=== PATIENT | male | born 1940 | race Caucasian/White ===

== ENCOUNTER 2018-11-04 18:23 | Inpatient (IN) | payer OTHER ==
--- OUTSIDE RECORDS SUMMARY | 2018-11-04 18:25 | XMS REPORT | Continuity of Care Document ---
:1940 Author Organization [employer] Care Team Providers Name Role Phone [employer] 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 18 Medical of left eyelid, Center including canthus EYELID Active 05/15/19 [facility] RECONTRUCTION 18 Medical Center Unspecified 08/22/2017 [facility] ectropion of Medical right lower Center eyelid Unspecified 08/22/2017 [facility] ectropion of left Medical lower eyelid Center Eyelid retraction 08/22/2017 [facility] left upper eyelid Medical Center Other specified 08/22/2017 [facility] disorders of Medical eyelid Center Unspecified 08/22/2017 [facility] disorder of Medical cornea Center Scar conditions 08/22/2017 [facility] and fibrosis of Medical Center [place] skin Center Conjunctival 08/22/2017 [facility] hemorrhage, Medical bilateral Center Gastro-esophageal 08/22/2017 [facility] reflux disease Medical without Center esophagitis Parkinson's 08/22/2017 [facility] disease Medical Center Alzheimer's 08/22/2017 [facility] disease, Medical unspecified Center Dementia in other 08/22/2017 [facility] diseases Medical Center [place] classified Center elsewhere without behavioral disturbance Schizophrenia, [facility] Personal history 08/22/2017 [facility] nicotine Medical dependence Center Anxiety Resolved Problem 08/22/[address] [facility] Weakness Resolved Problem 08/22/2017 [facility] generalized Medical Center [place] [facility] Cardiac Resolved Problem 08/22/2017 [facility] [address] [facility] COPD (Confirmed) Resolved Problem 08/22/[address] 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 Dysphagia Resolved Problem 08/22/[address] [facility] Entropion of Resolved Problem 08/22/2017 [facility] right eyelid Medical Center Hyperlipemia Resolved Problem 08/22/[address] [facility] Hypertension Resolved Problem 08/22/[address] [facility] Parkinson's Resolved Problem 08/22/2017 [facility] disease Medical Center [place] [facility] Rhinitis Resolved Problem 08/22/[address] [facility] Schizophrenia Resolved Problem 08/22/[address] [facility] Seizure Resolved Problem 08/22/[address] [facility] Medications Medication Details Route Status Patient Ordering Order Source Instructions Provider Date ondansetron Route: IV, Inactive [facility] (ANES) Drug form: 018 Medical INJ, ONCE, Center Stop date: 05/16/17 13:25:00 PYRIDINE OPERATOR acetaminophen Route: IV, Inactive [facility] (ANES) 10 mg Drug form: 018 Medical INJ, Start Center date: 05/16/17 10:38:00 PYRIDINE OPERATOR, Stop date: 05/16/17 11:38:00 PYRIDINE OPERATOR propofol (ANES) Route: IV, Inactive [facility] Drug form: 018 Medical INJ, ONCE, Center Stop date: 05/16/17 10:24:00 PYRIDINE OPERATOR lidocaine (ANES) Route: IV, Inactive [facility] Drug form: 018 Medical INJ, ONCE, Center Stop date: 05/16/17 10:24:00 PYRIDINE OPERATOR rocuronium Route: IV, Inactive [facility] (ANES) Drug form: 018 Medical INJ, ONCE, Center Stop date: 05/16/17 10:24:00 PYRIDINE OPERATOR fentaNYL (ANES) Route: IV, Inactive [facility] Drug form: 018 Medical INJ, ONCE, Center Stop date: 05/16/17 10:24:00 PYRIDINE OPERATOR ceFAZolin (ANES) Route: IV, Inactive [facility] Drug form: 018 Medical INJ, ONCE, Center Stop date: 05/16/17 10:14:00 PYRIDINE OPERATOR Lactated Ringers Route: IV, Inactive [facility] Injection IV Total 018 Medical (ANES) 1000 mL Volume: Center 1,000, Start date: 05/16/17 9:23:00 PYRIDINE OPERATOR, Stop date: 05/16/17 10:23:00 PYRIDINE OPERATOR Risperidone 2 MG 2 mg=1 tab, Active [facility] Oral Tablet PO, BID, # 018 Medical [Risperdal] 60 tab, 0 Center Refill(s) 24 HR =1 patch, Active [facility] rivastigmine TOP, Daily, 018 Medical 0.554 MG/HR apply to Center Transdermal area that Patch [Exelon] is clean/dry/h airless & free of redness/irr itation/bur ns/cuts, # 30 patch, 0 Refill(s) [place] Essentials 1 cap, PO, Active [facility] BID, 0 018 Medical Refill(s) [place] propranolol 20 20 mg=1 Active [place] mg oral tablet tab, PO, 018 Medical BID, # 60 Center tab, 1 Refill(s) omeprazole 10 mg 10 mg=1 Active [facility] oral delayed cap, PO, 018 Medical release capsule Daily, # 90 Center cap, 0 Refill(s) Polymyxin B 1 drp, Each Active [facility] 23035 UNT/ML / Affected 018 Medical Trimethoprim 1 Eye, Q3H, # Center MG/ML Ophthalmic 10 mL, 0 Solution Refill(s) [Polytrim] Ciprofloxacin / 1 appl, Active [facility] fluocinolone Q12H, 0 018 Medical Refill(s) Center Phenytoin sodium 100 mg=1 Active [facility] 100 MG Extended cap, PO, 018 Medical Release Capsule TID, # 90 Center [Dilantin] cap, 1 Refill(s) Divalproex 125 mg=1 Active [facility] Sodium 125 MG tab, PO, 018 Medical Enteric Coated TID, # 90 Center Tablet tab, 0 [Depakote] Refill(s) atorvastatin 20 20 mg=1 Active [facility] mg oral tablet tab, PO, 018 Medical Bedtime, # Center 90 tab, 1 Refill(s) Lorazepam 0.5 MG 0.5 mg=1 Active [facility] Oral Tablet tab, PO, 018 Medical [Ativan] TID, PRN [place] Anxiety, # 20 tab, 0 Refill(s) amantadine 100 100 mg=1 Active [facility] mg oral capsule cap, PO, 018 Medical Q12H, # 20 Center cap, 0 Refill(s) Allergies, Adverse Reactions, Alerts No Known Medication Allergies Immunizations No Data Provided for This Section Results Order Name Results Value Reference Date Interpretation Comments Source Range CHEM PANEL eGFR 95 [facility] 2017 Comment: The Medical eGFR is Center calculated using the CKD-EPI formula. In most young, healthy individuals the eGFR will be >90 mL/min/1.73m2 . The eGFR declines with age. An eGFR of 60-89 may be normal in some populations, particularly the elderly, for whom the CKD-EPI formula has not been extensively validated. Use of the eGFR is not recommended in the following populations:< br/>
Shruthi viduals with unstable creatinine concentration s, including patients and those with serious co-morbid conditions.<b r/>
Patie nts with extremes in muscle mass or diet.

The data above are obtained from the National Kidney Disease Education Program (NKDEP) which additionally recommends that when the eGFR is used in patients with extremes of body mass index for purposes of drug dosing, the eGFR should be multiplied by the estimated BMI. CHEM PANEL Sodium Lvl 139 135 - 145 05/[address] CHEM PANEL Creatinine 0.64 0.50 - 1.40 05/[address] CHEM PANEL BUN 10 7 - 22 05/[address] CHEM PANEL Calcium Lvl 8.9 8.5 - 10.5 05/[address] CHEM PANEL CO2 28 24 - [address] CHEM PANEL Chloride Lvl 104 95 - 109 05/[address] CHEM PANEL Potassium Lvl 4.1 3.5 - 5.[address] CHEM PANEL Glucose Lvl 109 70 - [address] CHEM PANEL AGAP 11.1 10.0 - 20.[address] HEMATOLOGY Monocytes # 0.7 0.0 - 0.8 05/[address] HEMATOLOGY Eosinophils # 0.1 0.0 - 0.[address] HEMATOLOGY Segs-Bands # 5.4 1.5 - 8.[address] HEMATOLOGY Basophils 0.4 0.0 - 1.[address] HEMATOLOGY Lymphocytes # 2.0 1.0 - 5.[address] HEMATOLOGY Segs 65.6 45.0 - 75.[address] HEMATOLOGY Eosinophils 1.5 0.0 - 4.0 02/[address] HEMATOLOGY Monocytes 8.3 2.0 - 12.[address] HEMATOLOGY Lymphocytes 24.2 20.0 - 40.[address] HEMATOLOGY MPV 8.1 7.4 - 10.[address] HEMATOLOGY RDW 13.4 11.5 - 14.[address] HEMATOLOGY Platelet 192 133 - [address] HEMATOLOGY Hgb 14.7 14.0 - 18.[address] HEMATOLOGY Hct 42.2 42.0 - 54.[address] HEMATOLOGY MCH 31.4 27.0 - 31.[address] HEMATOLOGY MCHC 34.7 32.0 - 36.[address] HEMATOLOGY MCV 90.3 80.0 - 94.[address] HEMATOLOGY WBC 8.3 3.7 - 10.[address] HEMATOLOGY RBC 4.68 4.70 - 6.[address] Pathology Reports No Data Provided for This Section Diagnostic Reports No Data Provided for This Section Consultation Notes No Data Provided for This Section Discharge Summaries No Data Provided for This Section History and Physicals No Data Provided for This Section Vital Signs Vital Sign Value Date Comments Source Systolic (mm Hg) 123 05/16/[address] [facility] Diastolic (mm Hg) 57 05/16/[address] [facility] Systolic (mm Hg) 124 05/16/[address] [facility] Diastolic (mm Hg) 58 05/16/[address] [facility] Systolic (mm Hg) 119 05/16/[address] [facility] Diastolic (mm Hg) 60 05/16/[address] [facility] Respitory Rate 17 05/16/[address] [facility] Respitory Rate 15 05/16/[address] [facility] Respitory Rate 14 05/16/[address] [facility] Heart Rate 68 05/16/[address] [facility] BMI Calculated 22.25 05/16/[address] [facility] Weight 66.364 05/16/[address] [facility] Height 172.72 cm 05/16/[address] 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 Smoking Status Former smoker; Type: Cigarettes; Previous treatment: None; Ready to change: No ; Concerns about tobacco use in household: No; Exposure to Tobacco Smoke None; Cigarette Smoking Last 365 Days Yes; Reg Smoking Cessation Counseling Yes entered on: 05/16/17 Family History No Data Provided for This Section Advance Directives No Data Provided for This Section Functional Status No Data Provided for This Section
[2018-11-04] MEDS ORDERED: MORPHINE 4 MG/ML SYR ONE (18:47)
[2018-11-04] MEDS ORDERED: ONDANSETRON 4 MG/2 ML VIAL ONE (18:48)
[2018-11-04] MEDS ORDERED: NA CHLORIDE 0.9% 1,000 ML ONE (18:48)
[2018-11-04 18:57] LABS: Protime INR 0.99
[2018-11-04 18:59] LABS: Absolute Lymphocytes (CBC) 2.4 K/uL (0.7-4.9); Basophils % 0.3 % (0-1.3); Hematocrit 42.4 % (39.6-49.0); Lymphocytes % 33.9 % (15.3-44.8); MPV 8.4 fL (7.6-11.3); RBC Red Blood Cell Count 4.51 M/uL (4.33-5.43)
--- NOTE | 2018-11-04 19:19 | RAD REPORT ---
EXAM DESCRIPTION: RAD - Pelvis - 11/04/2018 7:12 pm CLINICAL HISTORY: PAIN Fall, pain COMPARISON: Hip Bilateral With Pelvis dated 10/23/2015; Hip Left 2 View dated 11/04/2018Hip Bilateral With Pelvis dated 10/23/2015; Hip Left 2 View dated 11/04/2018; Femur Left dated 11/04/2018 FINDINGS: AP pelvis, left hip and left femur- multiple projections are submitted Intratrochanteric fracture the proximal left femur is seen without significant displacement. No addit ional fracture is identified. No dislocation evident.
--- NOTE | 2018-11-04 19:21 | RAD REPORT ---
EXAM DESCRIPTION: RAD - Chest Single View - 11/04/2018 7:15 pm CLINICAL HISTORY: COUGH Chest pain. COMPARISON: Chest Single View dated 10/23/2015; Chest Single View dated 10/21/2015; Chest Single View dated 10/20/2015; Chest Single View dated 10/19/2015 FINDINGS: Portable technique limits examination quality. Emphysematous changes are present throughout the lungs. The heart is normal in size. Mildly tortuous thoracic aorta. IMPRESSION: COPD.
[2018-11-04 19:26] LABS: ALT/SGPT 20 U/L (12-78); AST/SGOT 30 U/L (15-37); Albumin 3.5 g/dL (3.4-5.0); Alkaline Phosphatase 87 U/L (45-117); BUN Blood Urea Nitrogen 14 mg/dL (7-18); Bicarbonate 30 mmol/L (21-32); Bilirubin Direct < 0.1 mg/dL (0-0.2); Bilirubin Total 0.2 mg/dL (0.2-1.0); Glucose Level 96 mg/dL (74-106); Magnesium 2.1 mg/dL (1.8-2.4); NT PRO-BNP 173 pg/mL (<450); Potassium 3.8 mmol/L (3.5-5.1); Protein, Total 6.7 g/dL (6.4-8.2); Sodium Level 142 mmol/L (136-145); Troponin (Emerg Dept Use Only) < 0.02 ng/mL (0.0-0.045)
[2018-11-04 19:35] LABS: Phenytoin (Dilantin) Level 18.8 ug/mL (10.0-20.0)
--- NOTE | 2018-11-04 20:30 | ER ---
Nurse's Notes [facility] Name: Jsaper Smallwood Jr Age: 78 yrs Sex: Male : 1940 Arrival Date: 11/04/2018 Time: 18:22 Bed 6 Private MD: Diagnosis: Fall due to bumping against object;Nondisplaced intertrochanteric fracture of left femur Presentation: 11/04 18:23 Presenting complaint: EMS states: pt was walking down the [place] at [facility] when he tripped and fell on duct tape that was taped to the floor, pt fell to the left side and reports having pain, denies LOC, EMS believe the left leg to be externally rotated at this time. Care prior to arrival: Placed on backboard. IV initiated. 20 GA, in the left antecubital area. Mechanism of Injury: Fall from standing position. Trauma event details: Injury occurred in the [facility], Injury occurred: [facility] Injury occurred: November 04, 2018. 18:23 Acuity: JUVENTINO 3 18:23 Method Of Arrival: EMS: [facility] 18:25 Transition of care: patient was received from another setting of care (long-term care facility), [facility]. Onset of symptoms was November 04, 2018. Risk Assessment: Do you want to hurt yourself or someone else? Patient reports no desire to harm self or others. Initial Sepsis Screen: Does the patient meet any 2 criteria? No. Patient's initial sepsis screen is negative. Does the patient have a suspected source of infection? No. Patient's initial sepsis screen is negative. Note pt currently on cipro for cellulitis to the left eye. Trauma Activation: Alert Physician: ED Physician; Name: ; Notified At: ; Arrived At: Physician: General Surgeon; Name: ; Notified At: ; Arrived At: Physician: Radiology; Name: ; Notified At: ; Arrived At: Physician: Respiratory; Name: ; Notified At: ; Arrived At: Physician: Lab; Name: ; Notified At: ; Arrived At: Historical: - Allergies: 18:28 No Known Allergies; sg - PMHx: 18:28 Anxiety; Hyperlipidemia; Parkinsons; Schizophrenia; sg - PSHx: 18:28 Unable to obtain; sg - Code Status:: DNAR. - Immunization history:: Adult Immunizations up to date. - Social history:: Smoking status: Patient/guardian denies using tobacco. - Immunization history: Last tetanus immunization: - up to date. - Ebola Screening: : Patient negative for fever greater than or equal to 101.5 degrees Fahrenheit, and additional compatible Ebola Virus Disease symptoms Patient denies exposure to infectious person Patient denies travel to an Ebola-affected area in the 21 days before illness onset No symptoms or risks identified at this time. - Family history:: not pertinent. Screenin:23 Nutritional screening: On bland/soft diet, Difficulty chewing/swallowing? Yes. sg Tuberculosis screening: No symptoms or risk factors identified. Fall Risk Fall in past 12 months (25 points). Gait- Impaired (20 pts.). Total Fan Fall Scale indicates High Risk Score (45 or more points). Fall prevention measures have been instituted. Side Rails Up X 2 Placed Close to Nursing Station Frequent Obs/Assessments Occuring. 18:28 Abuse screen: Denies threats or abuse. Denies injuries from another. sg Primary Survey: 18:29 NO uncontrolled hemorrhage observed. A: The patient is alert. Airway: patent, No sg supplemental oxygen in use on arrival. Oral cavity: clear, Trachea midline. Breathing/Chest: Respiratory pattern: regular, Respiratory effort: spontaneous, unlabored, Breath sounds: clear, Chest inspection: symmetrical rise and fall of the chest. Circulation: Heart tones present. Disability Alert. Exposure/Environment: All clothing and personal items were removed. Forensic evidence collection is not deemed to be indicated at this time. Items placed in patient belonging bag. There is no evidence of uncontrolled external bleeding. Obvious injury(ies) are noted at this time: left hip pain, externally rotated A warming method has been applied: A warm blanket has been provided to the patient. 19:50 Reassessment Airway Airway Patent Breathing/Chest Respiratory pattern Regular rr5 Respiratory effort Spontaneous Unlabored Breath sounds Clear Chest inspection Symmetrical Circulation Heart rhythm Sinus rhythm Heart tones Present Pulses Palpable Color [place] Temperature Warm Disability Alert. 19:51 Reassessment Airway Airway Breathing/Chest Respiratory pattern Regular. ao Secondary Survey: 18:30 HEENT: Head No injury/deformity Face Other redness and swelling to the left eye, EMS sg report pt on Cipro for cellulitis to the left eye Eyes: No injury or deformity noted. Ears: clear Nose: clear to bilateral nares. Throat: No injury or deformity noted. Gastrointestinal: Abdomen is soft, Bowel sounds present in all quadrants. Palpation No deficit noted. : No signs and/or symptoms were reported regarding the genitourinary system. Musculoskeletal: Range of motion: limited in left hip pt reports too painful to move left hip Swelling absent Reports pain in left iliac crest and left hip. Assessment: 18:23 General: Appears in no apparent distress. uncomfortable, slender, unkempt, sg malnourished, Behavior is calm, cooperative, appropriate for age. Pain: Complains of pain in left iliac crest and left hip. Neuro: Level of Consciousness is awake, obeys commands, Speech is slurred, with a studder. Cardiovascular: Patient's skin is warm and dry. Pulses are palpable in left femoral artery, left posterior tibial artery and left dorsalis pedis artery Edema is absent. Chest pain is denied. Respiratory: Airway is patent Respiratory effort is even, unlabored, Respiratory pattern is regular, symmetrical. GI: Abdomen is round non-distended, Bowel sounds present X 4 quads. : No signs and/or symptoms were reported regarding the genitourinary system. EENT: No signs and/or symptoms were reported regarding the EENT system. Derm: Skin is pale, Skin temperature is warm. Musculoskeletal: Reports pain in left iliac crest and left hip. 18:58 Reassessment: observation pt transported to xray, pt remains in xray at this time. sg 19:20 General: Appears in no apparent distress. uncomfortable, slender, unkempt, Behavior is ao calm, cooperative, appropriate for age. Pain: Complains of pain in left hip. Neuro: Level of Consciousness is awake, obeys commands, Oriented to person, place, Speech is slurred. Cardiovascular: Capillary refill is > 3 seconds Patient's skin is warm and dry. Pulses are palpable in right radial artery and left radial artery. Respiratory: Airway is patent Respiratory effort is even, unlabored, Respiratory pattern is regular, symmetrical. GI: Abdomen is round non-distended. : No signs and/or symptoms were reported regarding the genitourinary system. EENT: No signs and/or symptoms were reported regarding the EENT system. Derm: Skin is pink, warm \T\ dry. normal, Skin temperature is warm. Musculoskeletal: Reports pain in left hip. 19:38 Reassessment: Got a call from Sharita at [facility] who wanted to check on ao patient and was told once doctor makes a dispo decision will call back. 20:30 Reassessment: Patient appears in no apparent distress at this time. Patient is alert, rr5 oriented x 3, equal unlabored respirations, skin warm/dry/pink. awaiting for CT result. 21:20 Reassessment: Patient appears in no apparent distress at this time. Patient and/or rr5 family updated on plan of care and expected duration. Pain level reassessed. Patient is alert, oriented x 3, equal unlabored respirations, skin warm/dry/pink. 22:20 Reassessment: Patient appears in no apparent distress at this time. Patient is alert, rr5 oriented x 3, equal unlabored respirations, skin warm/dry/pink. transfer to room 230. vitally stable. no complaints made. Vital Signs: 18:26 BP 153 / 53; Pulse 75; Resp 16; Temp 97.7; Pulse Ox 98% on R/A; Weight 79.38 kg; Pain sg 8/10; 19:55 BP 150 / 80; Pulse 61; Resp 13; Pulse Ox 99% on R/A; rr5 20:30 BP 148 / 85; Pulse 58; Resp 17; Pulse Ox 99% ; rr5 21:10 BP 141 / 75; Pulse 69; Resp 17; Pulse Ox 98% on R/A; rr5 22:20 BP 132 / 68; Pulse 64; Resp 16; Temp 98; Pulse Ox 100% ; rr5 [place] Coma Score: 19:00 Eye Response: spontaneous(4). Verbal Response: oriented(5). Motor Response: obeys ao commands(6). Total: 15. 19:55 Eye Response: spontaneous(4). Verbal Response: oriented(5). Motor Response: obeys rr5 commands(6). Total: 15. Trauma Score (Adult): 19:00 Eye Response: spontaneous(1); Verbal Response: oriented(1); Motor Response: obeys ao commands(2); Systolic BP: > 89 mm Hg(4); Respiratory Rate: 10 to 29 per min(4); Memo Score: 15; Trauma Score: 12 ED Course: 18:22 Patient arrived in ED. sg 18:23 Patient has correct armband on for positive identification. Bed in low position. Call sg light in reach. telemetry monitor on. Pulse ox on. NIBP on. Warm blanket given. Head of bed lowered. 18:23 Maintain EMS IV. Dressing intact. Site clean \T\ dry. Gauge \T\ site: 20 G RAC. IV is sg patent, is intact, with good blood return. 18:25 Triage completed. sg 18:28 Arm band placed on. sg 18:35 Matthew Philippe MD is Attending Physician. roxy 19:10 XRAY Chest (1 view) In Process Unspecified. EDMS 19:11 Hip Left 2 View XRAY In Process Unspecified. EDMS 19:11 Femur Left XRAY In Process Unspecified. EDMS 19:11 Pelvis XRAY In Process Unspecified. EDMS 19:12 Geoff Stpehen RN is Primary Nurse. rr5 19:50 Patient maintains SpO2 saturation greater than 95% on room air. ao 19:50 Thermoregulation: warm blanket given to patient. ao 20:28 Blanca Phelps MD is Hospitalizing Provider. roxy 20:50 Myers cath inserted, using sterile technique, 16 Fr., by ok, balloon inflated, urine rr5 specimen collected. returned clear yellow urine. Patient tolerated well. 20:50 Urine collected: Myers catheter specimen, clear. rr5 22:20 No provider procedures requiring assistance completed. Patient admitted, IV remains in rr5 place. intact, No redness/swelling at site. Administered Medications: 18:48 Drug: morphine 4 mg Route: IVP; Site: left antecubital; sg 19:47 Follow up: Response: Pain is decreased; RASS: Alert and Calm (0) ao 18:48 Drug: Zofran 4 mg Route: IVP; Site: left antecubital; sg 19:48 Follow up: Response: No adverse reaction ao 19:45 Drug: NS 0.9% 1000 ml Route: IV; Rate: 125 ml/hr; Site: left antecubital; ao 22:25 Follow up: Response: No adverse reaction; IV Status: Infusion continued upon admission; rr5 IV Intake: 250ml Intake: 22:25 IV: 250ml; Total: 250ml. rr5 Output: 22:23 Urine: 300ml (Myers); Total: 300ml. rr5 Outcome: 20:29 Decision to Hospitalize by Provider. roxy 22:20 Admitted to Med/surg accompanied by tech, family with patient, via stretcher, room 230, rr5 with chart, Report called to anselmo 22:20 Condition: stable 22:20 Instructed on the need for admit. 22:22 Patient's length of stay in the Emergency Department was greater than 2 hours. rr5 admission processPatient's length of stay extended due to 22:27 Patient left the ED. rr5 Signatures: Dispatcher [employer] EDMS Tacho Crisostomo, RN RN Matthew Avalos MD MD cha Ortiz, Alex, RN RN Geoff Figueredo RN RN rr5 Corrections: (The following items were deleted from the chart) 19:09 18:23 Cardiovascular: Patient's skin is warm and dry. Chest pain is denied migue camarena
--- NOTE | 2018-11-04 20:31 | EDPHYS ---
Physician Documentation [facility] Name: Jasper Smallwood Jr Age: 78 yrs Sex: Male : 1940 Arrival Date: 11/04/2018 Time: 18:22 Bed 6 Private MD: ED Physician Matthew Philippe HPI: 11/04 20:23 This 78 yrs old Male presents to ER via EMS with complaints of Hip Injury. roxy 20:23 This 78 yrs old Male presents to ER via EMS with complaints of Hip Injury. roxy 20:23 The patient or guardian reports decreased range of motion, deformity, an injury. that roxy occurred at a fdc or assisted living facility, sustained from a fall. The complaints affect the left hip, left gluteal fold, left inner thigh and left upper thigh. Onset: The symptoms/episode began/occurred just prior to arrival. Modifying factors: The symptoms are alleviated by nothing, remaining still, the symptoms are aggravated by any movement. Associated signs and symptoms: Loss of consciousness: the patient experienced no loss of consciousness. Severity of symptoms: At their worst the symptoms were moderate, in the emergency department the symptoms are unchanged. The patient has not experienced similar symptoms in the past. Historical: - Allergies: 18:28 No Known Allergies; sg - PMHx: 18:28 Anxiety; Hyperlipidemia; Parkinsons; Schizophrenia; sg - PSHx: 18:28 Unable to obtain; sg - Code Status:: DNAR. - Immunization history:: Adult Immunizations up to date. - Social history:: Smoking status: Patient/guardian denies using tobacco. - Immunization history: Last tetanus immunization: - up to date. - Ebola Screening: : Patient negative for fever greater than or equal to 101.5 degrees Fahrenheit, and additional compatible Ebola Virus Disease symptoms Patient denies exposure to infectious person Patient denies travel to an Ebola-affected area in the 21 days before illness onset No symptoms or risks identified at this time. - Family history:: not pertinent. ROS: 20:23 Constitutional: Negative for fever, chills, and weight loss, Eyes: Negative for injury, roxy pain, redness, and discharge, ENT: Negative for injury, pain, and discharge, Neck: Negative for injury, pain, and swelling, Cardiovascular: Negative for chest pain, palpitations, and edema, Respiratory: Negative for shortness of breath, cough, wheezing, and pleuritic chest pain, Abdomen/GI: Negative for abdominal pain, nausea, vomiting, diarrhea, and constipation, Back: Negative for injury and pain, : Negative for injury, bleeding, discharge, and swelling, Skin: Negative for injury, rash, and discoloration, Neuro: Negative for headache, weakness, numbness, tingling, and seizure, Psych: Negative for depression, anxiety, suicide ideation, homicidal ideation, and hallucinations, Allergy/Immunology: Negative for hives, rash, and allergies, Endocrine: Negative for neck swelling, polydipsia, polyuria, polyphagia, and marked weight changes, Hematologic/Lymphatic: Negative for swollen nodes, abnormal bleeding, and unusual bruising. 20:23 MS/extremity: Positive for injury or acute deformity, decreased range of motion, pain, swelling, tenderness, of the left hip, left gluteal fold, left inner thigh and left upper thigh. Exam: 20:23 Constitutional: This is a well developed, well nourished patient who is awake, alert, roxy and in no acute distress. Head/Face: Normocephalic, atraumatic. Eyes: Pupils equal round and reactive to light, extra-ocular motions intact. Lids and lashes normal. Conjunctiva and sclera are non-icteric and not injected. Cornea within normal limits. Periorbital areas with no swelling, redness, or edema. ENT: Nares patent. No nasal discharge, no septal abnormalities noted. Tympanic membranes are normal and external auditory canals are clear. Oropharynx with no redness, swelling, or masses, exudates, or evidence of obstruction, uvula midline. Mucous membranes moist. Neck: Trachea midline, no thyromegaly or masses palpated, and no cervical lymphadenopathy. Supple, full range of motion without nuchal rigidity, or vertebral point tenderness. No Meningismus. Chest/axilla: Normal chest wall appearance and motion. Nontender with no deformity. No lesions are appreciated. Cardiovascular: Regular rate and rhythm with a normal S1 and S2. No gallops, murmurs, or rubs. Normal PMI, no JVD. No pulse deficits. Respiratory: Lungs have equal breath sounds bilaterally, clear to auscultation and percussion. No rales, rhonchi or wheezes noted. No increased work of breathing, no retractions or nasal flaring. Abdomen/GI: Soft, non-tender, with normal bowel sounds. No distension or tympany. No guarding or rebound. No evidence of tenderness throughout. Back: No spinal tenderness. No costovertebral tenderness. Full range of motion. Male : Normal genitalia with no discharge or lesions. Skin: Warm, dry with normal turgor. Normal color with no rashes, no lesions, and no evidence of cellulitis. Neuro: Awake and alert, GCS 15, oriented to person, place, time, and situation. Cranial nerves II-XII grossly intact. Motor strength 5/5 in all extremities. Sensory grossly intact. Cerebellar exam normal. Normal gait. Psych: Awake, alert, with orientation to person, place and time. Behavior, mood, and affect are within normal limits. 20:23 Musculoskeletal/extremity: Extremities: noted in the left hip, left gluteal fold, left inner thigh and left upper thigh: decreased ROM, ROM: limited active range of motion, limited passive range of motion, limited active range of motion due to pain, limited passive range of motion due to pain, Circulation is intact in all extremities. Sensation intact. Compartment Syndrome exam of affected extremity: is normal. DVT Exam: no swelling, negative Homans' sign noted on exam, no appreciated bluish discoloration, no erythema, no increased warmth, pain, tenderness. Vital Signs: 18:26 BP 153 / 53; Pulse 75; Resp 16; Temp 97.7; Pulse Ox 98% on R/A; Weight 79.38 kg; Pain sg 8/10; 19:55 BP 150 / 80; Pulse 61; Resp 13; Pulse Ox 99% on R/A; rr5 20:30 BP 148 / 85; Pulse 58; Resp 17; Pulse Ox 99% ; rr5 21:10 BP 141 / 75; Pulse 69; Resp 17; Pulse Ox 98% on R/A; rr5 22:20 BP 132 / 68; Pulse 64; Resp 16; Temp 98; Pulse Ox 100% ; rr5 Memo Coma Score: 19:00 Eye Response: spontaneous(4). Verbal Response: oriented(5). Motor Response: obeys ao commands(6). Total: 15. 19:55 Eye Response: spontaneous(4). Verbal Response: oriented(5). Motor Response: obeys rr5 commands(6). Total: 15. Trauma Score (Adult): 19:00 Eye Response: spontaneous(1); Verbal Response: oriented(1); Motor Response: obeys ao commands(2); Systolic BP: > 89 mm Hg(4); Respiratory Rate: 10 to 29 per min(4); [place] Score: 15; Trauma Score: 12 MDM: 18:35 Patient medically screened. [facility] 20:33 Data reviewed: vital signs, nurses notes, lab test result(s), EKG, radiologic studies, roxy plain films. 11/04 18:38 Order name: Basic Metabolic Panel; Complete Time: 20:22 [facility] 11/04 18:38 Order name: CBC with Diff; Complete Time: 20:22 [facility] 11/04 18:38 Order name: LFT's; Complete Time: 20:22 [facility] 11/04 18:38 Order name: Magnesium; Complete Time: 20:22 [facility] 11/04 18:38 Order name: NT PRO-BNP; Complete Time: 20:22 [facility] 11/04 18:38 Order name: PT-INR; Complete Time: 20:22 [facility] 11/04 18:38 Order name: Troponin (emerg Dept Use Only); Complete Time: 20:22 [facility] 11/04 18:38 Order name: XRAY Chest (1 view); Complete Time: 20:22 [facility] 11/04 18:41 Order name: Hip Left 2 View XRAY [facility] 11/04 18:41 Order name: Femur Left XRAY [facility] 11/04 18:41 Order name: Urine Culture [facility] 11/04 19:10 Order name: Depakote; Complete Time: 20:22 [facility] 11/04 19:10 Order name: Dilantin; Complete Time: 20:22 [facility] 11/04 21:06 Order name: Urine Dipstick--Ancillary (enter results); Complete Time: 21:55 ag4 11/04 18:38 Order name: EKG; Complete Time: 18:41 [facility] 11/04 18:38 Order name: Cardiac monitoring; Complete Time: 18:42 [facility] 11/04 18:38 Order name: EKG - Nurse/Tech; Complete Time: 18:42 [facility] 11/04 18:38 Order name: IV Saline Lock; Complete Time: 18:43 [facility] 11/04 18:38 Order name: Labs collected and sent; Complete Time: 18:43 [facility] 11/04 18:38 Order name: O2 Per Protocol; Complete Time: 18:43 [facility] 11/04 18:38 Order name: O2 Sat Monitoring; Complete Time: 18:43 [facility] 11/04 18:41 Order name: Pelvis XRAY; Complete Time: 20:22 [facility] 11/04 18:41 Order name: Urine Dipstick-Ancillary (obtain specimen); Complete Time: 20:58 [facility] 11/04 20:23 Order name: Myers: DIANDRA GOEL; Complete Time: 20:58 [facility] Administered Medications: 18:48 Drug: morphine 4 mg Route: IVP; Site: left antecubital; sg 19:47 Follow up: Response: Pain is decreased; RASS: Alert and Calm (0) ao 18:48 Drug: Zofran 4 mg Route: IVP; Site: left antecubital; sg 19:48 Follow up: Response: No adverse reaction ao 19:45 Drug: NS 0.9% 1000 ml Route: IV; Rate: 125 ml/hr; Site: left antecubital; ao 22:25 Follow up: Response: No adverse reaction; IV Status: Infusion continued upon admission; rr5 IV Intake: 250ml Disposition: 11/04/18 20:29 Hospitalization ordered by Blanca Phelps for Inpatient Admission. Preliminary diagnosis are Fall due to bumping against object, Nondisplaced intertrochanteric fracture of left femur. - Bed requested for Telemetry/MedSurg (Inpatient). - Status is Inpatient Admission. rr5 - Condition is Fair. - Problem is new. - Symptoms have improved. UTI on Admission? No Signatures: Dispatcher [employer] EDMS Tacho Crisostomo RN RN sg Anderson, Corey, MD MD cha Garcia, Cindy, RN RN Lavelle Walden RN RN ao Roque, Raymond, RN RN rr5 Corrections: (The following items were deleted from the chart) 21:33 20:29 Hospitalization Ordered by Blanca Phelps MD for Inpatient Admission. Preliminary cg diagnosis is Fall due to bumping against object; Nondisplaced intertrochanteric fracture of left femur. Bed requested for Telemetry/MedSurg (Inpatient). Status is Inpatient Admission. Condition is Fair. Problem is new. Symptoms have improved. UTI on Admission? No. [facility] 21:36 21:33 11/04/2018 20:29 Hospitalization Ordered by Blanca Phelps MD for Inpatient cg Admission. Preliminary diagnosis is Fall due to bumping against object; Nondisplaced intertrochanteric fracture of left femur. Bed requested for Telemetry/MedSurg (Inpatient). Status is Inpatient Admission. Condition is Fair. Problem is new. Symptoms have improved. UTI on Admission? No. cg 22:27 21:36 11/04/2018 20:29 Hospitalization Ordered by Blanca Phelps MD for Inpatient rr5 Admission. Preliminary diagnosis is Fall due to bumping against object; Nondisplaced intertrochanteric fracture of left femur. Bed requested for Telemetry/MedSurg (Inpatient). Status is Inpatient Admission. Condition is Fair. Problem is new. Symptoms have improved. UTI on Admission? No. cg
[2018-11-04] MEDS ORDERED: LIDOCAINE VISCOUS 2% SOLN 15 ML UDC ONE (20:39)
[2018-11-04] MEDS ORDERED: ACETAMINOPHEN 500 MG TAB PO PRN (21:16)
[2018-11-04 21:23] LABS: Urine Blood NEGATIVE (NEG); Urine Glucose NEGATIVE (NEG); Urine Protein NEGATIVE (NEG); Urine Specific Gravity 1.015 (1.005-1.030); Urine pH 7.5 (5.0-7.0)
[2018-11-04] MEDS: NA CHLORIDE 0.9% 1,000 ML IV SCH (23:00)
[2018-11-05] MEDS ORDERED: CEFAZOLIN/SWI 1gm 2 GM/20 ML SYR ONE (00:03)
[2018-11-05] MEDS: ONDANSETRON 4 MG/2 ML VIAL IV PRN ×2 (02:18→20:51)
[2018-11-05] MEDS: HYDROMORPHONE HCL 1 MG/ML INJ IV PRN ×3 (02:18→20:51)
[2018-11-05] MEDS: CEFAZOLIN/NS 1gm 1 GM/50 ML BAG IVPB SCH ×3 (05:36)
[2018-11-05] MEDS: NA CHLORIDE 0.9% 1,000 ML IV SCH ×3 (05:36→18:51)
[2018-11-05 06:49] LABS: Absolute Lymphocytes (CBC) 1.8 K/uL (0.7-4.9); Basophils % 0.3 % (0-1.3); Hematocrit 37.3 % (39.6-49.0); Lymphocytes % 20.4 % (15.3-44.8); MPV 8.8 fL (7.6-11.3); RBC Red Blood Cell Count 4.06 M/uL (4.33-5.43)
[2018-11-05 06:59] LABS: ALT/SGPT 91 U/L (12-78); AST/SGOT 155 U/L (15-37); Albumin 3.3 g/dL (3.4-5.0); Alkaline Phosphatase 113 U/L (45-117); BUN Blood Urea Nitrogen 13 mg/dL (7-18); Bicarbonate 32 mmol/L (21-32); Bilirubin Total 0.3 mg/dL (0.2-1.0); Glucose Level 97 mg/dL (74-106); Phosphorus 3.1 mg/dL (2.5-4.9); Potassium 4.1 mmol/L (3.5-5.1); Sodium Level 143 mmol/L (136-145)
--- NOTE | 2018-11-05 09:49 | EKG ---
Test Date: 2018-11-04 Test Time: 19:53:20 Executive Director Of Nursing: RR MEASUREMENT RESULTS: Intervals: Rate: 61 IL: 224 QRSD: 100 QT: 416 QTc: 418 Clifford: P: 73 IL: 224 QRS: -41 T: 30 INTERPRETIVE STATEMENTS: Sinus rhythm with 1st degree AV block Left axis deviation Nonspecific ST abnormality Abnormal ECG Compared to ECG 10/20/2015 06:38:47 First degree AV block now present Left-axis deviation now present ST (T wave) deviation now present Electronically Signed On 11-05-18 09:47:59 CDT by Juan Francisco Stallings
--- NOTE | 2018-11-05 09:57 | RAD REPORT ---
EXAM DESCRIPTION: RAD - Hip Left 2 View - 11/04/2018 7:13 pm CLINICAL HISTORY: PAIN Fall, pain COMPARISON: Hip Bilateral With Pelvis dated 10/23/2015; Hip Left 2 View dated 11/04/2018Hip Bilateral With Pelvis dated 10/23/2015; Hip Left 2 View dated 11/04/2018; Femur Left dated 11/04/2018 FINDINGS: AP pelvis, left hip and left femur- multiple projections are submitted Intratrochanteric fracture the proximal left femur is seen without significant displacement. No addit ional fracture is identified. No dislocation evident.
--- NOTE | 2018-11-05 09:57 | RAD REPORT ---
EXAM DESCRIPTION: RAD - Femur Left - 11/04/2018 7:12 pm CLINICAL HISTORY: PAIN Fall, pain COMPARISON: Hip Bilateral With Pelvis dated 10/23/2015; Hip Left 2 View dated 11/04/2018Hip Bilateral With Pelvis dated 10/23/2015; Hip Left 2 View dated 11/04/2018; Femur Left dated 11/04/2018 FINDINGS: AP pelvis, left hip and left femur- multiple projections are submitted Intratrochanteric fracture the proximal left femur is seen without significant displacement. No addit ional fracture is identified. No dislocation evident.
--- NOTE | 2018-11-05 11:34 | P.HP ---
Certification for Inpatient Patient admitted to: Inpatient With expected LOS: >2 Midnights Patient will require the following post-hospital care: None Practitioner: I am a practitioner with admitting privileges, knowledge of patient current condition, hospital course, and medical plan of care. Services: Services provided to patient in accordance with Admission requirements found in Title 42 Section 412.3 of the Code of Federal Regulations Patient History Date of Service: 11/04/18 Reason for admission: Intratrochanteric fracture of the proximal left femur History of Present Illness: Patient is a 78-year-old gentleman who came to the hospital after falling. [facility]. The patient has a history of Parkinson 's disease. He apparently had gotten out of bed and fell. He suffered a intratrochanteric fracture of the proximal left femur. The patient has low cardiopulmonary risk for complications postoperatively benefits of surgery outweigh the risk. Patient will need admission for further workup. Allergies No Known Allergies Allergy (Verified 11/05/18 04:06) Home Medications: Amantadine HCl [Amantadine] 100 mg PO DAILY 10/19/15 Atorvastatin Calcium [Lipitor*] 40 mg PO BEDTIME 10/19/15 Carbidopa/Levodopa 25-250 [Sinemet 25-250*] 1 tab PO AC 10/19/15 Divalproex Sodium 2 cap PO TID 10/19/15 Rivastigmine [Exelon] 13.3 mg TD DAILY 10/19/15 Gabapentin [Neurontin] 200 mg PO TID 11/04/18 LORazepam [Ativan] 0.5 mg PO BID 11/04/18 Mirtazapine 30 mg PO DAILY 11/04/18 Multivitamin-Min/Iron/FA/Vit K [Multi-Day Plus Minerals Tablet] 1 each PO DAILY 11/04/18 Omeprazole 10 mg PO [id number] 11/04/18 Phenytoin 4 ml PO TID 11/04/18 Propranolol HCl 20 mg PO TID 11/04/18 Guaifenesin [Cough Syrup] 10 ml PO Q6HP PRN 11/05/18 POLYV ALC 1.4% Opth [Liquiflim Tears 1.4% Ophth Cindy] 1 drops EACH EYE QID - Past Medical/Surgical History Has patient received pneumonia vaccine in the past: Yes Diabetic: No -: anxiety -: schizophrenia -: hyperlipidemia -: parkinsons -: basal cell ca -: dilip eye surgery- s/p fall -: throat surgery - Family History Father Family History: Reviewed- Non-Contributory - Social History Smoking Status: Never smoker Alcohol use: No CD- Drugs: No Caffeine use: No [facility] Review of Systems 10-point ROS is otherwise unremarkable Physical Examination - Vital Signs Temperature: 98.6 F Blood Pressure: 128/61 Pulse: 68 Respirations: 18 Pulse Ox (%): 95 - Physical Exam General: Alert, In no apparent distress, Oriented x1 HEENT: Atraumatic, PERRLA, Mucous membr. moist/pink, EOMI, Sclerae nonicteric Neck: Supple, 2+ carotid pulse no bruit, No LAD, Without JVD or thyroid abnormality Respiratory: Clear to auscultation bilaterally, Normal air movement Cardiovascular: Regular rate/rhythm, Normal S1 S2 Gastrointestinal: Normal bowel sounds, Soft and benign, Non-distended, No tenderness Musculoskeletal: No clubbing, No swelling, Tenderness, Other (decreased range of motion of the left hip) Integumentary: No rashes Neurological: Normal speech, Normal tone, Sensation intact, Cranial nerves 3-12 intact, Abnormal gait, Abnormal strength Lymphatics: No axilla or inguinal lymphadenopathy - Studies Laboratory Data (last 24 hrs) 11/04/18 18:24: PT 11.7, INR 0.99 11/04/18 18:24: WBC 7.1, Hgb 14.1, Hct 42.4, Plt Count 201 11/04/18 18:24: Sodium 142, Potassium 3.8, BUN 14, Creatinine 0.73, Glucose 96, Magnesium 2.1, Total Bilirubin 0.2, AST 30, ALT 20, Alkaline Phosphatase 87 Assessment & Plan - Problems (Diagnosis) (1) Closed intertrochanteric fracture Current Visit: Yes Status: Acute Qualifiers: Encounter type: initial encounter Fracture alignment: nondisplaced Laterality: left Qualified Code(s): S72.145A - Nondisplaced intertrochanteric fracture of left femur, initial encounter for closed fracture (2) Parkinson disease Current Visit: Yes Status: Acute (3) Basal cell carcinoma (BCC) Current Visit: Yes Status: Acute (4) Schizophrenia Current Visit: Yes Status: Acute - Plan -management per orthopedic surgery -IV hydration and IV antibiotics -pain control -Continue Parkinson's medication -advanced diet as tolerated -strict blood pressure and blood sugar control -monitor electrolytes and blood count closely -Dc Myers catheter in 48-72 hr -PT evaluation -DVT prophylaxis Discharge Plan: Psychiatry - Advance Directives Does patient have a Living Will: No Does patient have a Durable POA for Healthcare: No - Code Status/Comfort Care Code Status Assessed: Yes Code Status: Full Code Critical Care: No Time Spent Managing PTS Care (In Minutes): 40
--- NOTE | 2018-11-05 12:26 | P.PN ---
Subjective Date of Service: 11/05/18 Chief Complaint: Intratrochanteric fracture of the proximal left femur Subjective: No new changes Patient seen and examined at bedside. family at bedside. Chart reviewed and case discussed with nursing staff. Review of Systems 10-point ROS is otherwise unremarkable Physical Examination - Vital Signs Temperature: 98.6 F Blood Pressure: 128/61 Pulse: 68 Respirations: 18 Pulse Ox (%): 95 - Physical Exam General: Alert, In no apparent distress, Oriented x1, Cachectic, Other (Elderly) HEENT: Atraumatic, PERRLA, EOMI Neck: Supple, JVD not distended Respiratory: Clear to auscultation bilaterally, Normal air movement Cardiovascular: Regular rate/rhythm, Normal S1 S2 Gastrointestinal: Normal bowel sounds, No tenderness Musculoskeletal: No tenderness Integumentary: No rashes Neurological: Normal speech, Normal tone, Normal affect Lymphatics: No axilla or inguinal lymphadenopathy - Studies Laboratory Data (last 24 hrs) 11/04/18 18:24: PT 11.7, INR 0.99 11/04/18 18:24: WBC 7.1, Hgb 14.1, Hct 42.4, Plt Count 201 11/04/18 18:24: Sodium 142, Potassium 3.8, BUN 14, Creatinine 0.73, Glucose 96, Magnesium 2.1, Total Bilirubin 0.2, AST 30, ALT 20, Alkaline Phosphatase 87 Assessment And Plan - Current Problems (Diagnosis) (1) Closed intertrochanteric fracture Current Visit: Yes Status: Acute Plan: Secondary to mechanical fall -management per orthopedic surgery -IV hydration and IV antibiotics -pain control -PT evaluation Qualifiers: Encounter type: initial encounter Fracture alignment: nondisplaced Laterality: left Qualified Code(s): S72.145A - Nondisplaced intertrochanteric fracture of left femur, initial encounter for closed fracture (2) Basal cell carcinoma (BCC) Current Visit: Yes Status: Acute (3) Parkinson disease Current Visit: Yes Status: Acute Plan: -Continue Parkinson's medication - Plan DVT prophylaxis: Hold for possible surgical intervention GI prophylaxis: None Diet: Regular Disposition: Pending orthopedic evaluation. Will likely require physical therapy. Will get social work involved for discharge planning
[2018-11-05] MEDS: CEFAZOLIN/SWI 1gm 1 GM/10 ML SYR IV SCH ×2 (13:34→18:52)
[2018-11-05] MEDS ORDERED: NA CHLORIDE 0.9% 100 ML IV ONE (16:16)
[2018-11-05] MEDS ORDERED: Phenylephrine HCl 10 MG/ML 1 ML VIAL ONE (16:18)
[2018-11-05] MEDS ORDERED: PROPOFOL 200 MG/20 ML VIAL IV ONE (16:19)
[2018-11-05] MEDS ORDERED: LIDOCAINE 2% MPF 5 ML VIAL ONE (16:20)
[2018-11-05] MEDS ORDERED: FENTANYL CITR 100 MCG/2 ML ONE (16:23)
[2018-11-05] MEDS ORDERED: Ringers Lactate 1,000 ML IV ONE (16:24)
[2018-11-05] MEDS ORDERED: GLYCOPYRROLATE 0.2 MG/ML SYR ONE (16:48)
[2018-11-05] MEDS ORDERED: dexAMETHasone 10 MG/ML VIAL ONE (17:18)
[2018-11-05] MEDS ORDERED: KETOROLAC 30 MG/ML INJ ONE (17:18)
[2018-11-05] MEDS ORDERED: ONDANSETRON 4 MG/2 ML VIAL ONE (17:18)
--- NOTE | 2018-11-05 17:56 | P.BOP ---
Preoperative diagnosis: left comminuted proximal femur fracture Postoperative diagnosis: same Primary procedure: left hip im ritu Estimated blood loss: 50 ccs Anesthesia: General Complications: None Transferred to: Recovery Room Condition: Good
[2018-11-05] MEDS ORDERED: PROMETHAZINE 25 MG/ML VIAL ONE (18:20)
[2018-11-05] MEDS ORDERED: ENOXAPARIN 30 MG/0.3 ML SQ SCH (19:00)
--- NOTE | 2018-11-05 19:00 | RAD REPORT ---
EXAM DESCRIPTION: RAD - Hip In Or - 11/05/2018 6:49 pm CLINICAL HISTORY: Left femoral fracture FINDINGS: Surgery performed by Dr Marshall. Fluoroscopy time 2.4 minutes. Eight fluoroscopic spot i mages obtained Compression screw affixes a left femoral fracture.
[2018-11-05] MEDS ORDERED: CEFAZOLIN/SWI 1gm 1 GM/10 ML SYR IV SCH (19:24)
[2018-11-06] MEDS ORDERED: CEFAZOLIN/SWI 1gm 1 GM/10 ML SYR IV SCH
[2018-11-06] MEDS: CEFAZOLIN/SWI 1gm 1 GM/10 ML SYR IV SCH ×3 (00:43→16:37)
--- NOTE | 2018-11-06 02:59 | OP ---
Date of Procedure: 11/05/2018 Surgeon: Tacho Marshall MD Preoperative Diagnosis: Left comminuted proximal femur fracture consistent with a comminuted 4-part intertrochanteric fracture with a large spike of the lesser trochanter. Postoperative Diagnosis: Left comminuted proximal femur fracture consistent with a comminuted 4-part intertrochanteric fracture with a large spike of the lesser trochanter. Procedure: Left proximal femur closed reduction with intramedullary ritu fixation. Estimated Blood Loss: 50 cc. Complications: There were no complications. Specimens: No pathology specimen sent. Indications For Operation: Mr. Smallwood is a 78-year-old patient, who is a resident of a skilled nursing. He was normally ambulatory, but unfortunately fell injuring his left lower extremity. He was seen a nd examined in the emergency department by the emergency room physician and found to be free of other injuries with the exception of his left hip. X-rays taken at that time demonstrated a comminuted fr acture of the left proximal femur. This was discussed with the patient and the family, and patient i s for operative intervention, this to be an intramedullary nail. They state they understand everythi ng as presented as well as risks, benefits, and alternatives. Description Of Procedure: Patient was taken to the operating room and placed in supine position. Ge neral anesthesia was obtained by the staff. Following this, he was then placed on the fracture table . He was appropriately positioned and the fracture table as well as manual reduction techniques were used to obtain a reduction. This was not able to reduce the large lesser trochanteric fracture; how ever, the calcar appeared to line up well. There was quite a bit of concern regarding rotation and t his was very high on consideration list. His left lower extremity was then prepped and draped in usu al sterile fashion. The C-arm was brought in. The tip of the greater trochanter was identified with the C-arm and a vertical incision was made just proximal to this down through skin and soft tissue a s well as fascia. The starting awl was then used in quite a medial position to avoid lateralization of the starting hole. This was placed without difficulty and the guidewire was then placed across th e fracture site. Following this, the merchandise adjustment clerk was then used to at least the level of the lesser t rochanter. After this, the ritu, which had been selected 125, was then placed. It was observed under biplanar C-arm radiography as the cephalomedullary screw was placed. Great care was taken to make s ure that the calcar remains reduced and also that the lateral view does go directly up the center of the femoral neck into the head as this can be a frequent source of malrotation. The knee was examine d and there was slight internal rotation and appeared to be very good rotation as could be identified using physical landmarks as well as the C-arm. Following this, the cephalomedullary screw was place d without difficulty and an antirotation screw was then placed above. This was followed by the place ment of a distal interlocking screw. At the conclusion of the case, the medial fragment from the les ser trochanter was obviously displaced. Considerations of perhaps cerclaging this back down were ent ertained; however, not pursued because of the need to disrupt the vascular supply of this displaced f ragment, also cerclaging this area may cause further soft tissue as well as possibly vascular trauma. It did appear the calcar was well reduced. Therefore, decision was made not to cerclage the lesser trochanter. Following this, all of the incisions were irrigated and the fascia was closed in a wate rtight fashion using heavy Vicryl sutures. This was followed by closure of the skin using Vicryl sut ures followed by unruly. Patient was then awakened and taken to the recovery room in good condition . It should also be noted that there was a consideration for a long intramedullary nail, but it did appear that the distal interlocking screw was significantly distal to the fracture of the lesser troc hanter for good stability. /ELLE Voice ID: [id number] Report ID: [id number]
--- NOTE | 2018-11-06 04:06 | CON ---
Date of Consultation: 11/05/2018 History Of Present Illness: This is my first time I am seeing this patient to my knowledge. He is a 78-year-old male, who unfortunately fell at a nursing facility. [facility], where he was ruled out for other injuries; however, he demonstrated a displaced pr oximal femur fracture on x-ray. He was therefore admitted under the care of the hospitalist and I am seeing him now on the attendance of his family. Mr. Smallwood does appear to answer questions appropria tely, but he is unable to tell me exactly what happened other than he fell. He says he has been walk ing on his hip since he fell, which is obviously not true, but I do communicate with him as well as asia yanes. His family is there and they are very cognizant of his problem and understand things as pre sented. Physical Examination: On physical examination of Mr. Smallwood, all of his long bones and joints are palpated without pain or c repitation with the exception of his left hip, which is painful to any movement or manipulation. Whe n asked, patient says he only has pain in his left hip. Imaging: Review of the x-rays revealed a comminuted proximal femur fracture consistent with a 4-part intertrochanteric fracture. The lesser trochanter is a fairly large piece, but I would not necessar joe classify this as a subtrochanteric fracture as this piece is free, although all pieces appear to be quite displaced. Assessment: This is a 78-year-old male, now with a comminuted 4-part intertrochanteric fracture with a long subtrochanteric fragment, which is also comminuted. Plan: At this time, I discussed with both Mr. Smallwood as well as the family, risks, benefits, and alte rnatives of different methods of treating this, and at this time, we selected an intramedullary ritu f ixation. All risks, benefits, and alternatives of this were again discussed. They state they understand things as presented and wish to proceed. KALI Voice ID: [id number] Report ID: [id number]
[2018-11-06] MEDS: HYDROMORPHONE HCL 1 MG/ML INJ IV PRN ×3 (05:12→22:47)
[2018-11-06] MEDS: ONDANSETRON 4 MG/2 ML VIAL IV PRN (05:12)
[2018-11-06] MEDS: NA CHLORIDE 0.9% 1,000 ML IV SCH ×3 (05:12→16:37)
[2018-11-06] MEDS: ENOXAPARIN 30 MG/0.3 ML SQ SCH (08:28)
--- NOTE | 2018-11-06 12:37 | P.PN ---
Subjective Date of Service: 11/06/18 Chief Complaint: Intratrochanteric fracture of the proximal left femur Subjective: No C/O voiced, Improving Patient seen and examined at bedside. No family at bedside. Chart reviewed and case discussed with nursing staff. He is status post left proximal femur close reduction with ritu fixation, POD#1. He is doing well this morning. No complaints this morning. Denies any chest pain, shortness of breath, headache, dizziness, vision changes. He states pain is almost resolved at this time. Review of Systems 10-point ROS is otherwise unremarkable Physical Examination - Vital Signs Temperature: 97.6 F Blood Pressure: 98/53 Pulse: 80 Respirations: 18 Pulse Ox (%): 91 - Physical Exam General: Alert, In no apparent distress HEENT: Atraumatic, PERRLA, EOMI Neck: Supple, JVD not distended Respiratory: Clear to auscultation bilaterally, Normal air movement Cardiovascular: Regular rate/rhythm, Normal S1 S2 Gastrointestinal: Normal bowel sounds, No tenderness Musculoskeletal: No tenderness Integumentary: No rashes Neurological: Normal speech, Normal tone, Normal affect Lymphatics: No axilla or inguinal lymphadenopathy Assessment And Plan - Current Problems (Diagnosis) (1) Closed intertrochanteric fracture Current Visit: Yes Status: Acute Plan: Secondary to mechanical fall -orthopedic surgery consulted, recommendations appreciated. POD# 1 status post left proximal femur close reduction with intermedullary ritu fixation. -continue IV hydration and IV antibiotics -continue pain control -PT evaluation, per orthopedic surgery Qualifiers: Encounter type: initial encounter Fracture alignment: nondisplaced Laterality: left Qualified Code(s): S72.145A - Nondisplaced intertrochanteric fracture of left femur, initial encounter for closed fracture (2) Basal cell carcinoma (BCC) Current Visit: Yes Status: Acute (3) Parkinson disease Current Visit: Yes Status: Acute Plan: -Continue Parkinson's medication - Plan DVT prophylaxis: Lovenox GI prophylaxis: None Diet: Regular Disposition: Will likely require further physical therapy on discharge. Will get social work involved for discharge planning Discharge Plan: [facility]
--- NOTE | 2018-11-07 06:40 | PN ---
Date of Progress Note: 11/06/2018 History Of Present Illness: Patient is seen today. He appears to be fairly comfortable. His dressi ng is clean, dry, and intact. He is able to move his toes easily. He does have a [place]. There has been a urinalysis done, but I did not see any other laboratories ordered today. He is on Lovenox. P hysical Therapy attempted to work with him, however, they were able to get him to stand only, unable to walk. Assessment: He appears to be doing fairly well on postoperative day #1 from a left comminuted proxim al femur fracture rodding. We will continue anticoagulation for 3 weeks with Lovenox or equivalent a nd then transition to aspirin for 3 weeks as appropriate. Maryana are to be removed day 10-12, vega ing the dressing only as needed. He will be touchdown weightbearing. He can come to see me at any t ran, but would anticipate would not allow full weightbearing until 6 weeks after x-rays. I spoke wit h the family today. All of their questions have been answered. /ELLE Voice ID: [id number] Report ID: [id number]
[2018-11-07] MEDS: NA CHLORIDE 0.9% 1,000 ML IV SCH (09:00)
[2018-11-07] MEDS: ENOXAPARIN 30 MG/0.3 ML SQ SCH (09:42)
[2018-11-07] MEDS: HYDROMORPHONE HCL 1 MG/ML INJ IV PRN ×2 (10:19→17:40)
--- NOTE | 2018-11-07 12:18 | P.PN ---
Subjective Date of Service: 11/07/18 Chief Complaint: Intratrochanteric fracture of the proximal left femur Subjective: Improving Patient seen and examined at bedside. No family at bedside. Chart reviewed and case discussed with nursing staff. He is status post left proximal femur close reduction with ritu fixation, POD#2. He is doing well this morning. No complaints this morning. Denies any chest pain, shortness of breath, headache, dizziness, vision changes. He states pain resolved at this time. Review of Systems 10-point ROS is otherwise unremarkable Physical Examination - Vital Signs Temperature: 98.4 F Blood Pressure: 109/60 Pulse: 90 Respirations: 18 Pulse Ox (%): 98 - Physical Exam General: Alert, In no apparent distress, Cooperative HEENT: Atraumatic, PERRLA, Other, EOMI Neck: Supple, JVD not distended Respiratory: Clear to auscultation bilaterally, Normal air movement Cardiovascular: Regular rate/rhythm, Normal S1 S2 Gastrointestinal: Normal bowel sounds, No tenderness Musculoskeletal: No tenderness Integumentary: No rashes Neurological: Normal speech, Normal tone, Normal affect Lymphatics: No axilla or inguinal lymphadenopathy - Studies Microbiology Data (last 24 hrs): 11/04/18 20:50 Clean Catch Urine [place] Count - Final 11/04/ 20:50 Clean Catch Urine - Final No growth. Assessment And Plan - Current Problems (Diagnosis) (1) Closed intertrochanteric fracture Current Visit: Yes Status: Acute Plan: Secondary to mechanical fall -orthopedic surgery consulted, recommendations appreciated. POD# 2, status post left proximal femur close reduction with intermedullary ritu fixation. -continue IV hydration and IV antibiotics -continue pain control -PT Qualifiers: Encounter type: initial encounter Fracture alignment: nondisplaced Laterality: left Qualified Code(s): S72.145A - Nondisplaced intertrochanteric fracture of left femur, initial encounter for closed fracture (2) Basal cell carcinoma (BCC) Current Visit: Yes Status: Acute (3) Parkinson disease Current Visit: Yes Status: Acute Plan: -Continue Parkinson's medication - Plan DVT prophylaxis: Lovenox GI prophylaxis: None Diet: Regular Disposition: Patient came to us from [facility], he will return there after discharge. Anticipate discharge back to [facility] in the next 24 hr pending clinical improvement. Discharge Plan: Group Home Plan to discharge in: 24 Hours
[2018-11-08] MEDS: HYDROMORPHONE HCL 1 MG/ML INJ IV PRN (00:03)
[2018-11-08] MEDS: NA CHLORIDE 0.9% 1,000 ML IV SCH ×2 (00:03→05:30)
[2018-11-08] MEDS: ENOXAPARIN 30 MG/0.3 ML SQ SCH (07:49)
--- NOTE | 2018-11-08 11:00 | P.PN ---
Subjective Date of Service: 11/08/18 Chief Complaint: Intratrochanteric fracture of the proximal left femur Subjective: Improving (Patient is improving no new complaints nonverbal) Review of Systems is unable to be obtained Physical Examination - Vital Signs Temperature: 99.1 F Blood Pressure: 114/57 Pulse: 75 Respirations: 16 Pulse Ox (%): 97 - Physical Exam General: Alert, Mild distress Respiratory: Clear to auscultation bilaterally Cardiovascular: No edema, Normal pulses - Studies Microbiology Data (last 24 hrs): 11/04/18 20:50 Clean Catch Urine [place] Count - Final 11/04/18 20:50 Clean Catch Urine - Final No growth. Assessment & Plan - Problems (Diagnosis) (1) Closed comminuted intertrochanteric fracture of proximal end of femur with delayed healing Current Visit: Yes Status: Acute Plan: Use recently had a repair of his fracture is clinically doing better current plan with rehab and transfer back to the shelter Qualifiers: Laterality: left Qualified Code(s): S72.142G - Displaced intertrochanteric fracture of left femur, subsequent encounter for closed fracture with delayed healing
[2018-11-09] MEDS: ENOXAPARIN 30 MG/0.3 ML SQ SCH ×2 (09:00→12:49)
--- NOTE | 2018-11-09 11:11 | P.PN ---
Subjective Date of Service: 11/09/18 Chief Complaint: Intratrochanteric fracture of the proximal left femur Subjective: Improving (Doing well undergoing physical therapy a slight bruise noticed in the left groin area) Review of Systems is unable to be obtained Physical Examination - Vital Signs Temperature: 99.0 F Blood Pressure: 114/59 Pulse: 79 Respirations: 18 Pulse Ox (%): 96 - Physical Exam General: Alert Respiratory: Clear to auscultation bilaterally Cardiovascular: No edema, Regular rate/rhythm Assessment & Plan - Problems (Diagnosis) (1) Closed comminuted intertrochanteric fracture of proximal end of femur with delayed healing Current Visit: Yes Status: Acute Plan: Patient is doing well undergoing physical therapy known you discomfort he does have a slight bruise in the left groin area extending to the left testicle does not stolen not tender continue with DVT prophylaxis vital signs all stable Qualifiers: Laterality: left Qualified Code(s): S72.142G - Displaced intertrochanteric fracture of left femur, subsequent encounter for closed fracture with delayed healing
[2018-11-09] MEDS ORDERED: LORAZEPAM 0.5 MG TABLET PO PRN (21:16)
[2018-11-09] MEDS ORDERED: TRAMADOL HCL 50 MG TAB PO PRN (21:23)
[2018-11-09 21:53] VITALS: O2SAT 97
[2018-11-09 21:56] VITALS: BMI 18.9
[2018-11-10] MEDS ORDERED: OMEPRAZOLE 10 MG PO SCH (06:00)
[2018-11-10 06:04] LABS: Absolute Lymphocytes (CBC) 1.7 K/uL (0.7-4.9); Basophils % 0.3 % (0-1.3); Hematocrit 23.8 % (39.6-49.0); Lymphocytes % 25.7 % (15.3-44.8); MPV 7.9 fL (7.6-11.3)
[2018-11-10] MEDS: CARBIDOPA/LEVODOPA 25/250 TAB PO SCH ×2 (08:29→12:27)
[2018-11-10] MEDS: ENOXAPARIN 30 MG/0.3 ML SQ SCH ×2 (08:30→09:00)
[2018-11-10] MEDS: GABAPENTIN 100 MG CAP PO SCH ×2 (08:30→13:26)
[2018-11-10] MEDS: DIVALPROEX NA 125 MG CAP PO SCH ×2 (08:30→13:26)
[2018-11-10] MEDS: POLYVINYL ALCOHOL 1.4% 15 ML EACH EYE SCH ×2 (08:30→12:27)
[2018-11-10] MEDS ORDERED: HOME MED 1 EA UNK (Propranolol Hcl [Propranolol Hcl] 20 MG) PO SCH (09:00)
[2018-11-10] MEDS ORDERED: MIRTAZAPINE 15 MG TAB PO SCH (09:00)
[2018-11-10] MEDS ORDERED: AMANTADINE 100 MG CAP PO SCH (09:00)
[2018-11-10] MEDS ORDERED: MULTIVITAMIN MIN PO SCH (09:00)
[2018-11-10] MEDS ORDERED: IRON PO SCH (09:00)
[2018-11-10] MEDS ORDERED: [UNRECOGNIZED DRUG - OTHER] PO SCH (09:00)
[2018-11-10] MEDS ORDERED: RIVASTIGMINE 13.3 MG TD SCH (09:00)
[2018-11-10] MEDS ORDERED: VIT K PO SCH (09:00)
[2018-11-10] MEDS ORDERED: PHENYTOIN PO SCH (09:00)
[2018-11-10 09:45] LABS: Hematocrit 26.6 % (39.6-49.0)
[2018-11-10 10:27] LABS: Ferritin 335.6 ng/mL (26-388)
--- NOTE | 2018-11-10 12:07 | RAD REPORT ---
EXAM DESCRIPTION: US - Scrotum Testicles - 11/10/2018 11:07 am CLINICAL HISTORY: Fall, scrotal pain, soft tissue swelling COMPARISON: None. FINDINGS: A prominent 10 millimeter anechoic right epididymal cyst is present. An additional 6 moshe meter epididymal cyst present. Bilateral testicular tissue is homogeneous. Doppler evaluation shows normal blood flow to each testic le. Minimal left hydrocele is present. Scrotal wall is relatively thickened and slightly edematous. N o abscess or focal abnormality of the scrotal wall. IMPRESSION: No suspicious testicular finding. Patient has right-sided epididymal cyst not regarded a s significant. Scrotal wall is relatively thickened but without focal abnormality.
[2018-11-10] MEDS ORDERED: PHENYTOIN 125 MG/5 ML ORAL.SUSP PO SCH (14:00)
--- NOTE | 2018-11-10 15:01 | P.DS ---
Admission Date: 11/04/18 Discharge Date: 11/10/18 Primary Care Provider: senior care Disposition: TRANSFER TO SNF - MEDICAL Discharge Condition: GOOD Reason for Admission: Intratrochanteric fracture of the proximal left femur Consultations: Orthopedics-Dr. Marshall Procedures: Hip Surgery: FINDINGS: AP pelvis, left hip and left femur- multiple projections are submitted Intratrochanteric fracture the proximal left femur is seen without significant displacement. No additional fracture is identified. No dislocation evident. Surgery: Date of Procedure: 11/05/2018 Surgeon: Tacho Marshall MD Preoperative Diagnosis: Left comminuted proximal femur fracture consistent with a comminuted 4-part intertrochanteric fracture with a large spike of the lesser trochanter. Postoperative Diagnosis: Left comminuted proximal femur fracture consistent with a comminuted 4-part intertrochanteric fracture with a large spike of the lesser trochanter. Procedure: Left proximal femur closed reduction with intramedullary ritu fixation. Estimated Blood Loss: 50 cc. Complications: There were no complications. Medical Problem List: Fall leading to Left proximal intratrochanteric femur fracture status post close reduction with intramedullary ritu fixation Parkinson's Seizure disorder Schizophrenia Anemia post operative with underlying iron and B12 deficiency GERD Hyperlipidemia Brief History of Present Illness: 78-year-old male presented to emergency room after a fall. Patient with history of Parkinson's, dementia, seizure disorder and schizophrenia. Patient found have a left hip fracture. Patient was admitted for treatment. Hospital Course: Patient presented after fall leading to left proximal intratrochanteric femur fracture. Patient seen and evaluated by orthopedics. Surgical intervention was recommended. Patient had closed reduction with intramedullary ritu fixation. Patient tolerated the procedure well. Patient has worked well with physical therapy. At discharge patient will return to the half-way with continued physical therapy. At discharge he will continue with Lovenox 30 mg subcu daily for 14 days for DVT prophylaxis. Patient will continue with wound care, follow up with orthopedics as recommended. Patient with underlying Parkinson's. This has remained stable. At discharge patient will continue with carbidopa levodopa 25/250 mg 1 pill every AC. Patient also takes propanolol 20 mg 1 pill 3 times a day. Recommend follow up with neurology as directed. Patient with underlying seizure disorder. This has remained stable. At discharge patient will continue with Dilantin 100 mg/4 mL solution at 4ml 3 times a day. Patient also takes gabapentin 100 mg 2 pills 3 times a day. Recommend follow up with neurology as directed. Patient with underlying schizophrenia. This has remained stable. Patient will continue with Depakote 125 mg 2 pills 3 times a day. Recommend follow up with psychiatry as directed. Patient with underlying dementia. Patient remained stable. At discharge patient will continue with amantadine 100 mg daily and Exelon patch daily. Patient also takes Ativan 0.5 mg 1 pill twice daily for agitation. Further adjustment can be done at the half-way. Patient with GERD. Patient will continue with Protonix 40 mg daily. Patient with hyperlipidemia. Patient will continue with Lipitor 40 mg daily. Patient had postop anemia. This has remained stable. Patient found to have iron and B12 deficiency. At discharge patient will continue with vitamin-B 12 1000 mcg daily and iron 325 mg 1 pill twice daily. Recommend to recheck lab- CBC in 1-2 weeks to monitor his progress. Patient has chronic left eye wound. Patient has received eyedrops in the past. Recommend follow up with process stripper to further monitor and address. Vital Signs/Physical Exam: Temp Pulse Resp BP Pulse Ox 97.4 F 94 H 18 138/77 100 11/10/18 12:00 11/10/18 12:00 11/10/18 12:00 11/10/18 12:00 11/10/18 12:00 General: Alert, In no apparent distress, Oriented x3, Cooperative HEENT: Atraumatic, Other (Left eye with inflammation suspect chronic infection) Respiratory: Clear to auscultation bilaterally, Normal air movement Cardiovascular: Normal pulses, Regular rate/rhythm Gastrointestinal: Normal bowel sounds, Soft and benign, Non-distended Musculoskeletal: No tenderness, No warmth Integumentary: Other (Mild ecchymosis to the left growing region) Neurological: Normal speech, Normal strength at 5/5 x4 extr, Normal tone, Normal affect Laboratory Data at Discharge: WBC 6.7 K/uL (4.3-10.9) D 11/10/18 05:34 Hgb 9.1 g/dL (13.6-17.9) L 11/10/18 09:25 Hct 26.6 % (39.6-49.0) L 11/10/18 09:25 Plt Count 250 K/uL (152-406) D 11/10/18 05:34 PT 11.7 SECONDS (9.5-12.5) 11/04/18 18:24 INR 0.99 11/04/18 18:24 Sodium 143 mmol/L (136-145) 11/05/18 05:47 Potassium 4.1 mmol/L (3.5-5.1) 11/05/18 05:47 BUN 13 mg/dL (7-18) 11/05/18 05:47 Creatinine 0.74 mg/dL (0.55-1.3) 11/05/18 05:47 Glucose 97 mg/dL (74-106) 11/05/18 05:47 Phosphorus 3.1 mg/dL (2.5-4.9) 11/05/18 05:47 Magnesium 2.0 mg/dL (1.8-2.4) 11/05/18 05:47 Total Bilirubin 0.3 mg/dL (0.2-1.0) 11/05/18 05:47 AST 155 U/L (15-37) H D 11/05/18 05:47 ALT 91 U/L (12-78) H 11/05/18 05:47 Alkaline Phosphatase 113 U/L (45-117) 11/05/18 05:47 Home Medications: Amantadine HCl [Amantadine] 100 mg PO DAILY 10/19/15 Atorvastatin Calcium [Lipitor*] 40 mg PO BEDTIME 10/19/15 Carbidopa/Levodopa 25-250 [Sinemet 25-250*] 1 tab PO AC 10/19/15 Divalproex Sodium 2 cap PO TID 10/19/15 Rivastigmine [Exelon] 13.3 mg TD DAILY 10/19/15 Gabapentin [Neurontin*] 200 mg PO TID 11/04/18 LORazepam [Ativan*] 0.5 mg PO BID 11/04/18 Mirtazapine 30 mg PO DAILY 11/04/18 Phenytoin 4 ml PO TID 11/04/18 Propranolol HCl 20 mg PO TID 11/04/18 POLYV ALC 1.4% Opth [Liquiflim Tears 1.4%*] 1 drops EACH EYE QID 11/05/18 Cyanocobalamin [Vitamin B-12*] 1,000 mcg PO DAILY #90 tab 11/10/18 Enoxaparin Sodium [Lovenox 30 MG INJ*] 30 mg SQ DAILY #14 syr 11/10/18 Ferrous Sulfate [Ferrous Sulfate*] 325 mg PO BID #60 tab 11/10/18 Pantoprazole [Protonix Tab] 40 mg PO DAILY #30 tab 11/10/18 New Medications: Cyanocobalamin [Vitamin B-12*] 1,000 mcg PO DAILY #90 tab Enoxaparin Sodium [Lovenox 30 MG INJ*] 30 mg SQ DAILY #14 syr Ferrous Sulfate [Ferrous Sulfate*] 325 mg PO BID #60 tab Pantoprazole [Protonix Tab] 40 mg PO DAILY #30 tab Patient Discharge Instructions: 1. Patient to return to half-way to continue therapy. 2. Patient presented after fall leading to left proximal intratrochanteric femur fracture. Patient seen and evaluated by orthopedics. Surgical intervention was recommended. Patient had closed reduction with intramedullary ritu fixation. Patient tolerated the procedure well. Patient has worked well with physical therapy. At discharge patient will return to the half-way with continued physical therapy. At discharge he will continue with Lovenox 30 mg subcu daily for 14 days for DVT prophylaxis. Patient will continue with wound care, follow up with orthopedics as recommended. 3. Patient with underlying Parkinson's. This has remained stable. At discharge patient will continue with carbidopa levodopa 25/250 mg 1 pill every AC. Patient also takes propanolol 20 mg 1 pill 3 times a day. Recommend follow up with neurology as directed. 4. Patient with underlying seizure disorder. This has remained stable. At discharge patient will continue with Dilantin 100 mg/4 mL solution at 4ml 3 times a day. Patient also takes gabapentin 100 mg 2 pills 3 times a day. Recommend follow up with neurology as directed. 5. Patient with underlying schizophrenia. This has remained stable. Patient will continue with Depakote 125 mg 2 pills 3 times a day. Recommend follow up with psychiatry as directed. 6. Patient with underlying dementia. Patient remained stable. At discharge patient will continue with amantadine 100 mg daily and Exelon patch daily. Patient also takes Ativan 0.5 mg 1 pill twice daily for agitation. Further adjustment can be done at the half-way. 7. Patient with GERD. Patient will continue with Protonix 40 mg daily. 8. Patient with hyperlipidemia. Patient will continue with Lipitor 40 mg daily. 9. Patient had postop anemia. This has remained stable. Patient found to have iron and B12 deficiency. At discharge patient will continue with vitamin- B 12 1000 mcg daily and iron 325 mg 1 pill twice daily. Recommend to recheck lab-CBC in 1-2 weeks to monitor his progress. 10. Patient has chronic left eye wound. Patient has received eyedrops in the past. Recommend follow up with process stripper to further monitor and address. Diet: AHA Activity: Fall precautions Time spent managing pt's care (in minutes): 55
[2018-11-10 17:14] VITALS: BP 134/59; TEMP 97.8
[2018-11-10] MEDS ORDERED: FERROUS SULFATE 325 MG TAB PO SCH (21:00)
[2018-11-11] MEDS ORDERED: PANTOPRAZOLE 40MG TABLET PO SCH (06:30)
[2018-11-11] MEDS ORDERED: CYANOCOBALAMIN 1,000 MCG TAB PO SCH (09:00)
[2018-11-11] MEDS ORDERED: MULTIVIT W/ MINERAL TAB PO SCH (09:00)
== END 2018-11-10 17:06 | DRG 482 ==
LOC: ER 18:23 → ERHOLD 21:16 → 2ND 22:21
PROVIDERS: ADMIT Hospitalist; ATTEND Hospitalist
PROC: 0QS736Z Reposition Left Upper Femur with Intramedullary Internal Fixation Device, Percutaneous Approach (ICD-10-PCS; principal; 2018-11-05 15:30)
DX: S72.142A Displaced intertrochanteric fracture of left femur, initial encounter for closed fracture (principal); W18.30XA Fall on same level, unspecified, initial encounter; Y92.199 Unspecified place in other specified residential institution as the place of occurrence of the external cause; G20 Parkinson's disease; F20.9 Schizophrenia, unspecified; G40.909 Epilepsy, unspecified, not intractable, without status epilepticus; D64.9 Anemia, unspecified; D51.9 Vitamin B12 deficiency anemia, unspecified; D50.8 Other iron deficiency anemias; Z85.828 Personal history of other malignant neoplasm of skin; F03.90 Unspecified dementia, unspecified severity, without behavioral disturbance, psychotic disturbance, mood disturbance, and anxiety; K21.9 Gastro-esophageal reflux disease without esophagitis; E78.5 Hyperlipidemia, unspecified
CPT/HCPCS: 36415; 51702; 71045; 72170; 73530; 76870; 80048; 80053; 80076; 80164; 80185; 81003; 82607; 82728; 83540; 83735; 83880; 84100; 84466; 84484; 85014; 85018; 85025; 85610; 87086; 87088; 93005; 96361; 96374; 96375; 97110; 97112; 97116; 97161; 97530; 99285; J0690; J1100; J1170; J1650; J2370; J2405; J2550; J2704; J3010; J7030

== ENCOUNTER 2019-01-05 12:15 | Observation (INO) | payer OTHER ==
[2019-01-05 13:06] LABS: Absolute Lymphocytes (CBC) 2.2 K/uL (0.7-4.9); Basophils % 0.5 % (0-1.3); Hematocrit 42.4 % (39.6-49.0); Lymphocytes % 23.2 % (15.3-44.8); MPV 8.1 fL (7.6-11.3); RBC Red Blood Cell Count 4.68 M/uL (4.33-5.43)
[2019-01-05 13:22] LABS: Protime INR 0.96
[2019-01-05 13:28] LABS: ALT/SGPT 30 U/L (12-78); AST/SGOT 17 U/L (15-37); Albumin 3.7 g/dL (3.4-5.0); Alkaline Phosphatase 261 U/L (45-117); BUN Blood Urea Nitrogen 14 mg/dL (7-18); Bicarbonate 31 mmol/L (21-32); Bilirubin Direct < 0.1 mg/dL (0-0.2); Bilirubin Total 0.3 mg/dL (0.2-1.0); Glucose Level 88 mg/dL (74-106); Magnesium 2.1 mg/dL (1.8-2.4); NT PRO-BNP 167 pg/mL (<450); Potassium 4.2 mmol/L (3.5-5.1); Protein, Total 6.9 g/dL (6.4-8.2); Sodium Level 145 mmol/L (136-145); Troponin (Emerg Dept Use Only) < 0.02 ng/mL (0.0-0.045)
--- NOTE | 2019-01-05 13:32 | RAD REPORT ---
EXAM DESCRIPTION: CT - CTHCSPWOC - 01/05/2019 1:18 pm CLINICAL HISTORY: Fall, head injury, left-sided head and neck pain COMPARISON: CT head September 2015 TECHNIQUE: Axial 5 mm thick images of the head were obtained. Axial 2 mm thick images of the cervic al spine were obtained with sagittal and coronal reconstruction images generated and reviewed. All CT scans are performed using dose optimization technique as appropriate and may include automated exposure control or mA/KV adjustment according to patient size. FINDINGS: No intracranial hemorrhage is present. No mass, edema or shift of midline structures. No acute cortic al based infarction identified. No cortical edema or sulcal effacement. Decreased attenuation in the anterior right cerebellum is believed to be due to bone attenuation artifact in the temporal bone. Po sterior fossa assessment is inherently limited on CT imaging. No extra-axial fluid collections. Masto id air cells and paranasal sinuses are clear. No globe or orbit abnormality seen. Moderate atrophy and mild chronic ischemic changes are present. Ventricles are in proportion to volum e loss. Small left frontal and left temporal scalp hematomas are present. No foreign body. Cervical body height and alignment are normal. No disk space narrowing. No fracture or acute bony abn ormality. No paraspinal mass or hematoma. IMPRESSION: No intracranial hemorrhage. No mass, edema or shift of midline structures. Decreased attenuation in the right-side cerebellum is believed to be artifact from dense temporal bon e. Cerebellum and posterior fossa assessment is inherently limited on CT imaging. Patient has underlying moderate atrophy and mild chronic ischemic change. Chronic ischemic change can potentially mask nonhemorrhagic acute CVA. Negative CT cervical spine examination for acute or significant finding.
--- NOTE | 2019-01-05 13:49 | RAD REPORT ---
EXAM DESCRIPTION: RAD - Chest Single View - 01/05/2019 1:17 pm CLINICAL HISTORY: Syncope, fall, left-sided chest pain COMPARISON: November 04 TECHNIQUE: AP portable chest image was obtained 1307 hours . FINDINGS: Chronic interstitial pattern is present without pneumothorax, pulmonary contusion or acute lung parenchymal process. Heart and vasculature are normal. No pleural fluid. No acute bony abnormal ity seen. No acute aortic findings suspected. IMPRESSION: No acute cardiopulmonary process. Patient has chronic chest findings that are similar to November 04.
--- NOTE | 2019-01-05 15:00 | EDPHYS ---
Physician Documentation [facility] Name: Jasper Smallwood Jr Age: 78 yrs Sex: Male : 1940 Arrival Date: 01/05/2019 Time: 12:16 Bed 3 Private MD: ED Physician Blanca Ghotra HPI: 01/05 14:55 This 78 yrs old Male presents to ER via EMS with complaints of Fall Injury. ma2 14:55 Details of fall: The patient fell from seated position. Onset: The symptoms/episode ma2 began/occurred suddenly, 1 hour(s) ago. Associated injuries: The patient sustained injury to the head. Severity of symptoms: At their worst the symptoms were very mild, in the emergency department the symptoms are unchanged. The patient has not experienced similar symptoms in the past, The patient has experienced similar episodes in the past. Historical: - Allergies: 12:23 No Known Allergies; tw2 - Home Meds: 12:23 Sinemet 25-250 mg Oral tab [Active]; Risperdal 0.5 mg Oral tab [Active]; omega 3 tw2 complex [Active]; pantoprazole 20 mg Oral TbEC 1 tab TID [Active]; Exelon Oral [Active]; divalproex 125 mg Oral TbEC 2 tabs 3 times per day [Active]; atorvastatin 20 mg Oral tab 1 tab once daily [Active]; Ativan 1 mg Oral tab 1 tab 2 times per day for Anxiety [Active]; amantadine HCl 100 mg Oral cap 1 cap once daily for Parkinsonism [Active]; 12:23 Exelon transdermal transdermal [Active]; Dilantin Oral 100 mg TID [Active]; Ferrous aa5 Sulfate Oral [Active]; gabapentin 100 mg oral cap [Active]; - PMHx: 12:23 Anxiety; Hyperlipidemia; Parkinsons; Schizophrenia; tw2 12:23 Cardiac Arrhythmia; Chronic Rhinitis; 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 - Social history:: Smoking status: Patient/guardian denies using alcohol, street drugs, The patient lives with family, with spouse. - Immunization history: Last tetanus immunization: unknown. - Ebola Screening: : Patient denies travel to an Ebola-affected area in the 21 days before illness onset. - Family history:: not pertinent. ROS: 14:57 Constitutional: Negative for fever, chills, and weight loss. ma2 14:57 All other systems are negative. 14:57 Unable to obtain ROS due to baseline dementia. Exam: 14:57 Constitutional: This is a well developed, well nourished patient who is awake, alert, ma2 and in no acute distress. Head/Face: Normocephalic, atraumatic. Eyes: Pupils equal round and reactive to light, extra-ocular motions intact. Lids and lashes normal. Conjunctiva and sclera are non-icteric and not injected. Cornea within normal limits. Periorbital areas with no swelling, redness, or edema. ENT: Nares patent. No nasal discharge, no septal abnormalities noted. Tympanic membranes are normal and external auditory canals are clear. Oropharynx with no redness, swelling, or masses, exudates, or evidence of obstruction, uvula midline. Mucous membranes moist. Neck: Trachea midline, no thyromegaly or masses palpated, and no cervical lymphadenopathy. Supple, full range of motion without nuchal rigidity, or vertebral point tenderness. No Meningismus. Chest/axilla: Normal chest wall appearance and motion. Nontender with no deformity. No lesions are appreciated. Cardiovascular: Regular rate and rhythm with a normal S1 and S2. No gallops, murmurs, or rubs. Normal PMI, no JVD. No pulse deficits. Respiratory: Lungs have equal breath sounds bilaterally, clear to auscultation and percussion. No rales, rhonchi or wheezes noted. No increased work of breathing, no retractions or nasal flaring. Abdomen/GI: Soft, non-tender, with normal bowel sounds. No distension or tympany. No guarding or rebound. No evidence of tenderness throughout. MS/ Extremity: Pulses equal, no cyanosis. Neurovascular intact. Full, normal range of motion. Neuro: Awake and alert, GCS 15, oriented to person only which is a baseline. does not recall what happened Cranial nerves II-XII grossly intact. Motor strength 5/5 in all extremities. Sensory grossly intact. Cerebellar exam normal. Normal gait. Vital Signs: 12:17 BP 202 / 98; Pulse 79; Resp 16; Temp 97.6(TE); Pulse Ox 98% on R/A; aa5 12:30 BP 170 / 85; Pulse 68; Resp 16 S; Pulse Ox 100% on R/A; aa5 13:11 BP 179 / 78; Pulse 73; Resp 14; Pulse Ox 95% on R/A; tw2 13:30 BP 165 / 82; Pulse 75; Resp 17; Pulse Ox 99% on R/A; tw2 14:43 BP 160 / 82; Pulse 77; Resp 17; Pulse Ox 100% on R/A; tw2 15:30 BP 160 / 83; Pulse 76; Resp 18 S; Temp 98.3(TE); Pulse Ox 98% on R/A; aa5 16:30 BP 160 / 82; Pulse 78; Resp 18 S; Pulse Ox 98% on R/A; aa5 [place] Coma Score: 12:17 Eye Response: spontaneous(4). Verbal Response: confused(4). Motor Response: obeys aa5 commands(6). Total: 14. Trauma Score (Adult): 12:17 Eye Response: spontaneous(1); Verbal Response: confused(1); Motor Response: obeys aa5 commands(2); Systolic BP: > 89 mm Hg(4); Respiratory Rate: 10 to 29 per min(4); Memo Score: 14; Trauma Score: 12 12:30 Eye Response: spontaneous(1); Verbal Response: confused(1); Motor Response: obeys aa5 commands(2); Systolic BP: > 89 mm Hg(4); Respiratory Rate: 10 to 29 per min(4); Memo Score: 14; Trauma Score: 12 13:30 Eye Response: spontaneous(1); Verbal Response: confused(1); Motor Response: obeys aa5 commands(2); Systolic BP: > 89 mm Hg(4); Respiratory Rate: 10 to 29 per min(4); [place] Score: 14; Trauma Score: 12 14:43 Eye Response: spontaneous(1); Verbal Response: confused(1); Motor Response: obeys aa5 commands(2); Systolic BP: > 89 mm Hg(4); Respiratory Rate: 10 to 29 per min(4); Memo Score: 14; Trauma Score: 12 15:30 Eye Response: spontaneous(1); Verbal Response: confused(1); Motor Response: obeys aa5 commands(2); Systolic BP: > 89 mm Hg(4); Respiratory Rate: 10 to 29 per min(4); [place] Score: 14; Trauma Score: 12 16:30 Eye Response: spontaneous(1); Verbal Response: confused(1); Motor Response: obeys aa5 commands(2); Systolic BP: > 89 mm Hg(4); Respiratory Rate: 10 to 29 per min(4); [place] Score: 14; Trauma Score: 12 Laceration: 15:27 Wound Repair of 1cm ( 0.4in ) subcutaneous laceration to right hand. Distal ma2 neuro/vascular/tendon intact. Anesthesia: Local anesthetic administered with 1 mls of 1% lidocaine. Wound prep: Simple cleansing. Skin closed with 2 2-0 Prolene using simple sutures and sterile technique. Dressed with Neosporin. Patient tolerated well. MDM: 12:18 Patient medically screened. ma2 14:57 Differential diagnosis: closed head injury, contusion, sprain, strain. Data reviewed: ma2 vital signs, nurses notes. Counseling: I had a detailed discussion with the patient and/or guardian regarding: the historical points, exam findings, and any diagnostic results supporting the discharge/admit diagnosis, the presence of at least one elevated blood pressure reading (>120/80) during this emergency department visit, the need for outpatient follow up. Response to treatment: the patient's symptoms have markedly improved after treatment. 01/05 12:47 Order name: Basic Metabolic Panel; Complete Time: 14:20 ma2 01/05 12:47 Order name: CBC with Diff; Complete Time: 14:20 ma2 01/05 12:47 Order name: LFT's; Complete Time: 14:20 ma2 01/05 12:47 Order name: Magnesium; Complete Time: 14:20 ma2 01/05 12:47 Order name: NT PRO-BNP; Complete Time: 14:20 ma2 01/05 12:47 Order name: PT-INR; Complete Time: 14:20 ma2 01/05 12:47 Order name: Troponin (emerg Dept Use Only); Complete Time: 14:20 ma2 01/05 12:47 Order name: XRAY Chest (1 view); Complete Time: 14:20 ma2 01/05 12:47 Order name: EKG; Complete Time: 12:48 ma2 01/05 12:47 Order name: Cardiac monitoring; Complete Time: 12:59 ma2 01/05 12:47 Order name: EKG - Nurse/Tech; Complete Time: 12:59 ma2 01/05 12:47 Order name: IV Saline Lock; Complete Time: 12:59 ma2 01/05 13:03 Order name: CT Head C Spine; Complete Time: 14:20 ma2 01/05 12:47 Order name: Labs collected and sent; Complete Time: 12:59 ma2 01/05 12:47 Order name: O2 Per Protocol; Complete Time: 12:59 ma2 01/05 12:47 Order name: O2 Sat Monitoring; Complete Time: 12:59 ma2 Administered Medications: 15:20 Drug: Lidocaine (1 %) 5 mg {Note: administered by PA during laceration repair. .} aa5 Route: Infiltration; Disposition: 01/05/19 14:59 Hospitalization ordered by Anyi Alamo for Observation. Preliminary diagnosis is Fall (on) (from) other stairs and steps - from wheel chair . - Bed requested for Telemetry/MedSurg (observation). - Status is Observation. aa5 - Condition is Stable. - Problem is new. - Symptoms are unchanged. UTI on Admission? No Signatures: Dispatcher [employer] EDEvelin Greene RN RN dw Maki Dean RN RN aa5 Ana Guillen RN RN tw2 Blanca Ghotra MD MD ma2 Corrections: (The following items were deleted from the chart) 16:20 14:59 Hospitalization Ordered by Anyi Alamo MD for Observation. Preliminary diagnosis dw is Fall (on) (from) other stairs and steps - from wheel chair . Bed requested for Telemetry/MedSurg (observation). Status is Observation. Condition is Stable. Problem is new. Symptoms are unchanged. UTI on Admission? No. ma2 17:03 12:47 Urine Dipstick-Ancillary ordered. ma2 aa5 17:17 16:20 01/05/2019 14:59 Hospitalization Ordered by Anyi Alamo MD for Observation. aa5 Preliminary diagnosis is Fall (on) (from) other stairs and steps - from wheel chair . Bed requested for Telemetry/MedSurg (observation). Status is Observation. Condition is Stable. Problem is new. Symptoms are unchanged. UTI on Admission? No. dw
--- NOTE | 2019-01-05 15:00 | ER ---
Nurse's Notes [facility] Name: Jasper Smallwood Jr Age: 78 yrs Sex: Male : 1940 Arrival Date: 01/05/2019 Time: 12:16 Bed 3 Private MD: Diagnosis: Fall (on) (from) other stairs and steps-from wheel chair Presentation: 01/05 12:16 Presenting complaint: EMS states: unwitnessed fall out of wheelchair reported by aa5 snf staff. Pt c/o pain to "whole left side of the body". Laceration noted to right little finger, band-aid applied, bleeding controlled. 12:16 Care prior to arrival: None. Mechanism of Injury: Fall out of chair. Trauma event aa5 details: Injury occurred in the [facility], Injury occurred: at home. 12:16 Method Of Arrival: EMS: [facility] aa5 12:16 Acuity: JUVENTINO 3 aa5 12:16 Transition of care: patient was received from another setting of care (long-term care [facility]. Onset of symptoms was January 05, 2019. 12:16 Risk Assessment: Do you want to hurt yourself or someone else? Unable to obtain. aa5 Initial Sepsis Screen: Does the patient meet any 2 criteria? No. Patient's initial sepsis screen is negative. Does the patient have a suspected source of infection? No. Patient's initial sepsis screen is negative. Trauma Activation: Not Applicable Physician: ED Physician; Name: ; Notified At: ; Arrived At: Physician: General Surgeon; Name: ; Notified At: ; Arrived At: Physician: Radiology; Name: ; Notified At: ; Arrived At: Physician: Respiratory; Name: ; Notified At: ; Arrived At: Physician: Lab; Name: ; Notified At: ; Arrived At: Historical: - Allergies: 12:23 No Known Allergies; tw2 - Home Meds: 12:23 Sinemet 25-250 mg Oral tab [Active]; Risperdal 0.5 mg Oral tab [Active]; omega 3 tw2 complex [Active]; pantoprazole 20 mg Oral TbEC 1 tab TID [Active]; Exelon Oral [Active]; divalproex 125 mg Oral TbEC 2 tabs 3 times per day [Active]; atorvastatin 20 mg Oral tab 1 tab once daily [Active]; Ativan 1 mg Oral tab 1 tab 2 times per day for Anxiety [Active]; amantadine HCl 100 mg Oral cap 1 cap once daily for Parkinsonism [Active]; 12:23 Exelon transdermal transdermal [Active]; Dilantin Oral 100 mg TID [Active]; Ferrous aa5 Sulfate Oral [Active]; gabapentin 100 mg oral cap [Active]; - PMHx: 12:23 Anxiety; Hyperlipidemia; Parkinsons; Schizophrenia; tw2 12:23 Cardiac Arrhythmia; Chronic Rhinitis; 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 - Social history:: Smoking status: Patient/guardian denies using alcohol, street drugs, The patient lives with family, with spouse. - Immunization history: Last tetanus immunization: unknown. - Ebola Screening: : Patient denies travel to an Ebola-affected area in the 21 days before illness onset. - Family history:: not pertinent. Screenin:17 Abuse screen: Denies threats or abuse. Nutritional screening: No deficits noted. tw2 Tuberculosis screening: No symptoms or risk factors identified. Fall Risk Secondary diagnosis (15 points) impaired mobility. Primary Survey: 12:17 NO uncontrolled hemorrhage observed. aa5 12:17 A: The patient is alert. Breathing/Chest: Chest inspection: symmetrical rise and fall aa5 of the chest. Circulation: Skin color: pink. Disability Alert. Exposure/Environment: A warming method has been applied: A warm blanket has been provided to the patient. 12:40 Reassessment Airway Airway Patent Breathing/Chest Respiratory pattern Regular aa5 Respiratory effort Spontaneous Unlabored Circulation Color [place] Disability Alert. Secondary Survey: 14:42 HEENT: Eyes: Other redness and yellow drainage noted to LEFT eye. Gastrointestinal: tw2 Abdomen is soft, flat, Bowel sounds present in all quadrants. : No signs and/or symptoms were reported regarding the genitourinary system. Musculoskeletal: Range of motion: intact in all extremities. Assessment: 12:17 General: Appears comfortable, Behavior is calm, cooperative. Pain: Complains of pain in aa5 left arm, left lateral aspect of chest/abdomen, left leg, and left foot. Unable to use pain scale. Patient is disoriented. Does not appear to understand pain scale. FLACC scale score is 2 out of 10. Neuro: Level of Consciousness is awake, obeys commands, confused, Oriented to person, Lighthouse Keeper are weak bilaterally Moves all extremities. Speech is mumbled, difficult to understand. . Cardiovascular: Heart tones S1 S2 present Rhythm is regular. Respiratory: Airway is patent Respiratory effort is even, unlabored, Respiratory pattern is regular, symmetrical. GI: Abdomen is flat, Bowel sounds present X 4 quads. Abd is soft X 4 quads. : No signs and/or symptoms were reported regarding the genitourinary system. EENT: left eye is shut with redness and swelling noted to eyelids, whitish drainage noted to left eye. . Derm: Skin is pink, warm \\T\\ dry. 1cm laceration noted to palmar aspect of distal right little finger, band-aid to site. Musculoskeletal: Range of motion: intact in all extremities. 13:11 Reassessment: No changes from previously documented assessment. Patient and/or family tw2 updated on plan of care and expected duration. Pain level reassessed. 14:43 Reassessment: Patient appears in no apparent distress at this time. No changes from tw2 previously documented assessment. Patient and/or family updated on plan of care and expected duration. Pain level reassessed. 15:40 Reassessment: Pt resting in bed with eyes closed, respirations even and unlabored, skin aa5 is pink/warm/dry. Awaiting room assignment. Contacted [facility] nurse and nurse states "his left eye has been red and swollen for about 3 years now" . 16:45 Reassessment: Dr. Alamo at bedside . aa5 17:10 Neuro: Level of Consciousness is awake, obeys commands, confused, Oriented to person. aa5 Respiratory: Airway is patent Respiratory effort is even, unlabored, Respiratory pattern is regular, symmetrical. Derm: Skin is pink, warm \\T\\ dry. Vital Signs: 12:17 BP 202 / 98; Pulse 79; Resp 16; Temp 97.6(TE); Pulse Ox 98% on R/A; aa5 12:30 BP 170 / 85; Pulse 68; Resp 16 S; Pulse Ox 100% on R/A; aa5 13:11 BP 179 / 78; Pulse 73; Resp 14; Pulse Ox 95% on R/A; tw2 13:30 BP 165 / 82; Pulse 75; Resp 17; Pulse Ox 99% on R/A; tw2 14:43 BP 160 / 82; Pulse 77; Resp 17; Pulse Ox 100% on R/A; tw2 15:30 BP 160 / 83; Pulse 76; Resp 18 S; Temp 98.3(TE); Pulse Ox 98% on R/A; aa5 16:30 BP 160 / 82; Pulse 78; Resp 18 S; Pulse Ox 98% on R/A; aa5 [place] Coma Score: 12:17 Eye Response: spontaneous(4). Verbal Response: confused(4). Motor Response: obeys aa5 commands(6). Total: 14. Trauma Score (Adult): 12:17 Eye Response: spontaneous(1); Verbal Response: confused(1); Motor Response: obeys aa5 commands(2); Systolic BP: > 89 mm Hg(4); Respiratory Rate: 10 to 29 per min(4); Memo Score: 14; Trauma Score: 12 12:30 Eye Response: spontaneous(1); Verbal Response: confused(1); Motor Response: obeys aa5 commands(2); Systolic BP: > 89 mm Hg(4); Respiratory Rate: 10 to 29 per min(4); Memo Score: 14; Trauma Score: 12 13:30 Eye Response: spontaneous(1); Verbal Response: confused(1); Motor Response: obeys aa5 commands(2); Systolic BP: > 89 mm Hg(4); Respiratory Rate: 10 to 29 per min(4); Memo Score: 14; Trauma Score: 12 14:43 Eye Response: spontaneous(1); Verbal Response: confused(1); Motor Response: obeys aa5 commands(2); Systolic BP: > 89 mm Hg(4); Respiratory Rate: 10 to 29 per min(4); Memo Score: 14; Trauma Score: 12 15:30 Eye Response: spontaneous(1); Verbal Response: confused(1); Motor Response: obeys aa5 commands(2); Systolic BP: > 89 mm Hg(4); Respiratory Rate: 10 to 29 per min(4); Memo Score: 14; Trauma Score: 12 16:30 Eye Response: spontaneous(1); Verbal Response: confused(1); Motor Response: obeys aa5 commands(2); Systolic BP: > 89 mm Hg(4); Respiratory Rate: 10 to 29 per min(4); [place] Score: 14; Trauma Score: 12 ED Course: 12:16 Patient arrived in ED. tw2 12:17 Arm band placed on. tw2 12:17 Patient has correct armband on for positive identification. Placed in gown. Bed in low aa5 position. Call light in reach. Side rails up X2. surveillance system monitor on. Pulse ox on. NIBP on. 12:18 Blanca Ghotra MD is Attending Physician. ma2 12:20 Maki Dean, RN is Primary Nurse. aa5 12:22 Triage completed. aa5 12:22 EKG done, by vibration technician. reviewed by Blanca Ghotra MD. at1 12:24 Patient maintains SpO2 saturation greater than 95% on room air. Thermoregulation: warm aa5 blanket given to patient. 12:59 Initial lab(s) drawn, by mn, sent to lab. Inserted saline lock: 20 gauge in right ms forearm, using aseptic technique. Blood collected. 13:17 XRAY Chest (1 view) In Process Unspecified. EDMS 13:19 CT Head C Spine In Process Unspecified. EDMS 14:59 Anyi Alamo MD is Hospitalizing Provider. ma2 15:20 Assist provider with laceration repair on palmar aspect of distal phalanx of right aa5 little finger using sutures. Set up tray. Performed by Chavez VEGA Patient tolerated well. 17:15 Patient admitted, IV remains in place. aa5 Administered Medications: 15:20 Drug: Lidocaine (1 %) 5 mg {Note: administered by SILVIA during laceration repair. .} aa5 Route: Infiltration; Intake: 14:42 PO: 0ml; Total: 0ml. tw2 Outcome: 14:42 Patient's length of stay in the Emergency Department was greater than 2 hours. acuity tw2 of pts in ERPatient's length of stay extended due to 14:59 Decision to Hospitalize by Provider. ma2 17:14 Admitted to Med/surg accompanied by tech, via stretcher, with chart, Report called to myrna HERRERA RN 17:14 Condition: stable 17:14 Instructed on the need for admit. 17:17 Patient left the ED. aa5 Signatures: Dispatcher [employer] EDMckenzie Saravia ms Maki, RN RN aa5 Lida Shaw, housing coordinator EKG Tat1 Ana Guillen RN RN tw2 Blanca Ghotra MD MD ma2 Corrections: (The following items were deleted from the chart) 12:25 12:17 BP 202 / 98; Pulse 109bpm; Resp 16bpm; Pulse Ox 98% RA; Temp 97.6F Temporal; tw2 aa5
[2019-01-05] MEDS ORDERED: LIDOCAINE 1% MPF 5 ML VIAL ONE (15:04)
--- NOTE | 2019-01-05 15:51 | EKG ---
Test Date: 2019-01-05 Test Time: 12:14:23 [employer]: F[facility]RICE MEASUREMENT RESULTS: Intervals: Rate: 70 NM: 184 QRSD: 96 QT: 394 QTc: 425 [place]: P: 94 NM: 184 QRS: -37 T: 24 INTERPRETIVE STATEMENTS: Normal sinus rhythm Left axis deviation Nonspecific ST abnormality Abnormal ECG Compared to ECG 11/04/2018 19:53:20 First degree AV block no longer present ST (T wave) deviation still present Electronically Signed On 01-05-19 15:50:14 CDT by Juan Francisco Stallings
[2019-01-05] MEDS: INSULIN -REGULAR HUMAN 50 UNIT/0.5 ML ML SQ SCH ×2 (17:19→21:00)
[2019-01-05] MEDS ORDERED: ONDANSETRON 4 MG/2 ML VIAL IV PRN (17:19)
--- NOTE | 2019-01-05 18:08 | P.HP ---
Certification for Inpatient Patient admitted to: Observation With expected LOS: <2 Midnights Practitioner: I am a practitioner with admitting privileges, knowledge of patient current condition, hospital course, and medical plan of care. Services: Services provided to patient in accordance with Admission requirements found in Title 42 Section 412.3 of the Code of Federal Regulations Patient History Date of Service: 01/05/19 Reason for admission: Unwitnessed fall History of Present Illness: This is a 78-year-old male with past medical history of dementia, Parkinson's, hypertension, hyperlipidemia who was brought from [facility] for an episode of falling out of his wheelchair. This was unwitnessed, and patient is a poor historian and he is not able to give history. There is no family at bedside. History obtained from chart review. After the fall, patient brought to the emergency room. He did receive 2 sutures in his right little finger. Patient was admitted for further evaluation if any syncope versus lab electrolyte abnormalities. In the ER, patient's blood pressure was elevated to 202/98, heart rate is 79, respirations of 16, afebrile and satting 98% on room air. His labs were unremarkable. Head/cervical CT was negative for any acute bleed, mass, edema or any shift. Chest x-ray was negative for any acute abnormalities. At the time of my exam, patient was oriented x1, which is his baseline. He was also hemodynamically stable and did not seem like he was in any acute distress. Allergies No Known Allergies Allergy (Verified 11/05/18 04:06) Home medications list reviewed: Yes Home Medications: Amantadine HCl [Amantadine] 100 mg PO DAILY 10/19/15 Atorvastatin Calcium [Lipitor*] 40 mg PO BEDTIME 10/19/15 Carbidopa/Levodopa 25-250 [Sinemet 25-250*] 1 tab PO AC 10/19/15 Divalproex Sodium 2 cap PO TID 10/19/15 Rivastigmine [Exelon] 13.3 mg TD DAILY 10/19/15 Gabapentin [Neurontin*] 200 mg PO TID 11/04/18 LORazepam [Ativan*] 0.5 mg PO BID 11/04/18 Mirtazapine 30 mg PO DAILY 11/04/18 Phenytoin 4 ml PO TID 11/04/18 Propranolol HCl 20 mg PO TID 11/04/18 POLYV ALC 1.4% Opth [Liquiflim Tears 1.4%*] 1 drops EACH EYE QID 11/05/18 Cyanocobalamin [Vitamin B-12*] 1,000 mcg PO DAILY #90 tab 11/10/18 Enoxaparin Sodium [Lovenox 30 MG INJ*] 30 mg SQ DAILY #14 syr 11/10/18 Ferrous Sulfate [Ferrous Sulfate*] 325 mg PO BID #60 tab 11/10/18 Pantoprazole [Protonix Tab] 40 mg PO DAILY #30 tab 11/10/18 - Past Medical/Surgical History Diabetic: No -: anxiety -: schizophrenia -: hyperlipidemia -: parkinsons -: basal cell ca -: dilip eye surgery- s/p fall -: throat surgery - Social History Alcohol use: No CD- Drugs: No Caffeine use: No Review of Systems 10-point ROS is otherwise unremarkable Physical Examination - Vital Signs Temperature: 98.4 F Blood Pressure: 188/94 Pulse: 84 Respirations: 20 Pulse Ox (%): 94 - Physical Exam General: Oriented x1, Cachectic, Demented HEENT: PERRLA, Mucous membr. moist/pink, Other (Left eye, inflammed, with drainage. This is chronic for him), EOMI, Sclerae nonicteric Respiratory: Clear to auscultation bilaterally, Normal air movement Cardiovascular: Regular rate/rhythm, Normal S1 S2 Gastrointestinal: Normal bowel sounds, No tenderness Musculoskeletal: No tenderness Integumentary: No rashes - Studies Laboratory Data (last 24 hrs) 01/05/19 12:57: PT 11.3, INR 0.96 01/05/19 12:57: WBC 9.4, Hgb 14.3, Hct 42.4, Plt Count 246 01/05/19 12:57: Sodium 145, Potassium 4.2, BUN 14, Creatinine 0.72, Glucose 88, Magnesium 2.1, Total Bilirubin 0.3, AST 17, ALT 30, Alkaline Phosphatase 261 H Assessment and Plan - Problems (Diagnosis) (1) Fall Current Visit: Yes Status: Acute (2) Seizure disorder Current Visit: Yes Status: Acute (3) GERD (gastroesophageal reflux disease) Current Visit: Yes Status: Acute (4) Hyperlipidemia Current Visit: Yes Status: Acute (5) Parkinson disease Current Visit: No Status: Acute (6) Schizophrenia Current Visit: No Status: Acute - Plan Admit patient to the floor with tele for observation -gentle IV hydration -monitor overnight, monitor labs and vital signs -may need to get more information on this medication -patient may return to nursing facility in the next 24-48 hr if he continues to remain stable overnight. Discharge Plan: Detention - Advance Directives Does patient have a Living Will: No Does patient have a Durable POA for Healthcare: No
[2019-01-05] MEDS: NA CHLORIDE 0.9% 1,000 ML IV SCH (18:34)
[2019-01-05 18:50] VITALS: BMI 24.0
[2019-01-05] MEDS: DIVALPROEX NA 125 MG CAP PO SCH (22:30)
[2019-01-06 05:37] LABS: Absolute Lymphocytes (CBC) 2.6 K/uL (0.7-4.9); Basophils % 0.4 % (0-1.3); Hematocrit 38.2 % (39.6-49.0); Lymphocytes % 33.8 % (15.3-44.8); RBC Red Blood Cell Count 4.28 M/uL (4.33-5.43)
[2019-01-06 05:47] LABS: ALT/SGPT 27 U/L (12-78); AST/SGOT 12 U/L (15-37); Albumin 3.3 g/dL (3.4-5.0); Alkaline Phosphatase 246 U/L (45-117); BUN Blood Urea Nitrogen 14 mg/dL (7-18); Bicarbonate 27 mmol/L (21-32); Bilirubin Total 0.3 mg/dL (0.2-1.0); Glucose Level 99 mg/dL (74-106); Potassium 3.8 mmol/L (3.5-5.1); Protein, Total 6.4 g/dL (6.4-8.2); Sodium Level 146 mmol/L (136-145)
[2019-01-06] MEDS: NA CHLORIDE 0.9% 1,000 ML IV SCH (06:32)
[2019-01-06] MEDS: INSULIN -REGULAR HUMAN 50 UNIT/0.5 ML ML SQ SCH ×4 (07:30→21:00)
[2019-01-06] MEDS ORDERED: AMANTADINE HCL 100 MG PO SCH (09:00)
[2019-01-06] MEDS: PHENYTOIN 125 MG/5 ML PO SCH ×3 (09:00→20:45)
[2019-01-06] MEDS ORDERED: POTASSIUM CL SA 10 MEQ TAB PO ONE (09:00)
[2019-01-06] MEDS: RIVASTIGMINE 13.3 MG TD SCH ×2 (09:00→13:16)
[2019-01-06] MEDS: DIVALPROEX NA 125 MG CAP PO SCH ×3 (09:26→20:45)
[2019-01-06] MEDS: D5 0.45 NS 1,000 ML IV SCH (12:09)
[2019-01-06] MEDS: AMANTADINE HCL PO SCH (13:17)
[2019-01-06 14:52] LABS: Urine Appearance CLOUDY; Urine Bilirubin NEGATIVE (NEG); Urine Blood NEGATIVE (NEG); Urine Color YELLOW; Urine Glucose NEGATIVE (NEG); Urine Microscopic Reflex ORDER UMIC; Urine Protein NEGATIVE (NEG); Urine Urobilinogen 0.2 mg/dL (0.2-1.0)
[2019-01-06 15:12] LABS: Urine Amorphous Sediment 1+ /HPF (NONE SEEN); Urine Bacteria 20-50 /HPF (NONE SEEN); Urine Culture Reflex Order NOT NEEDED; Urine Mucus 1+ /HPF (NONE SEEN); Urine RBC <5 /HPF (NONE SEEN)
[2019-01-06 15:21] VITALS: O2SAT 97
[2019-01-06] MEDS: FERROUS SULFATE 325 MG TAB PO SCH (20:44)
[2019-01-06] MEDS ORDERED: ATORVASTATIN 40 MG TAB PO SCH (21:00)
--- NOTE | 2019-01-06 23:41 | PN ---
Date of Progress Note: 01/06/2019 Patient seen and examined. Chart reviewed and case discussed with RN. Patient is confused. Family at the bedside. Treatment plan explained, all questions answered. Medications: List reviewed. Code Status: Full. Physical Examination: Vital Signs: Temperature 98, heart rate 74, blood pressure 134/63, respirations 18, O2 96% on room air. General: Awake, alert, oriented x1, not in any acute distress, elderly male. HEENT: Normocephalic, atraumatic. Patient has left eye redness, mild swelling. Oropharynx is clear. Poor dentition. CV: S1, S2. Peripheral pulses weak bilaterally. Regular rate and rhythm. Respiratory: Moving air well bilaterally. No wheezing. Gastrointestinal: Abdomen is soft, nontender, nondistended. Positive bowel sounds. Extremities: No clubbing, cyanosis, or edema. Neuro: Nonfocal. Laboratory Data: Sodium 146, potassium 3.8, chloride 113, CO2 27, BUN 14, creatinine 0.62, glucose 99, calcium 8.5, phosphorus 3, magnesium 2. WBC 7.7, H and H 13.2 and 38.2, platelets 220. Urine culture pending. Assessment: 78-year-old male with; 1. Status post fall. Likely due to sedative medications - on Ativan at home or possibly gait abnormality due to parkinsons or seizure. Check orthostatic vital signs. PT eval. 2. Seizure disorder. Stable. Cont precautions. 3. Gastroesophageal reflux disease without esophagitis, we will continue PPI. 4. Mixed hyperlipidemia, continue statin. 5. Parkinson disease, stable. Cont home meds. 6. History of schizophrenia. 7. Deep vein thrombosis prophylaxis addressed. 8. Left eye redness and swelling. Patient recently had surgery after fall. Plan: We will check orthostatic vital signs, PT eval, unclear etiology for why patient has been having multiple falls, may be related to his Parkinson's. Also the patient is on sedative medications, including gabapentin and Ativan which will be held. We will resume home medications as appropriate, likely DC back to nursing facility in a.m. once clinically improved. /ELLE Voice ID: [id number] Report ID: [id number] JACKSON
[2019-01-07] MEDS: D5 0.45 NS 1,000 ML IV SCH (02:12)
[2019-01-07 05:50] LABS: Absolute Lymphocytes (CBC) 2.4 K/uL (0.7-4.9); Basophils % 0.5 % (0-1.3); Lymphocytes % 33.3 % (15.3-44.8); MPV 8.3 fL (7.6-11.3); RBC Red Blood Cell Count 4.23 M/uL (4.33-5.43)
[2019-01-07 06:03] LABS: ALT/SGPT 23 U/L (12-78); AST/SGOT 10 U/L (15-37); Albumin 3.2 g/dL (3.4-5.0); Alkaline Phosphatase 228 U/L (45-117); BUN Blood Urea Nitrogen 14 mg/dL (7-18); Bicarbonate 31 mmol/L (21-32); Bilirubin Total 0.2 mg/dL (0.2-1.0); Glucose Level 120 mg/dL (74-106); Potassium 4.1 mmol/L (3.5-5.1); Protein, Total 6.3 g/dL (6.4-8.2); Sodium Level 143 mmol/L (136-145)
[2019-01-07] MEDS: INSULIN -REGULAR HUMAN 50 UNIT/0.5 ML ML SQ SCH ×2 (07:30→11:30)
[2019-01-07] MEDS: PHENYTOIN 125 MG/5 ML PO SCH ×2 (08:21→13:23)
[2019-01-07] MEDS: DIVALPROEX NA 125 MG CAP PO SCH ×2 (08:22→13:22)
[2019-01-07] MEDS: FERROUS SULFATE 325 MG TAB PO SCH (08:22)
[2019-01-07] MEDS: AMANTADINE HCL PO SCH (08:23)
[2019-01-07] MEDS ORDERED: RIVASTIGMINE 13.3 MG TOP SCH (09:00)
[2019-01-07 11:25] VITALS: TEMP 97.7
[2019-01-07 14:01] VITALS: BP 149/71
--- NOTE | 2019-01-08 02:34 | DS ---
Date of Discharge: 01/07/2019 Admitting Diagnoses: 1.Status post fall. 2.Seizure disorder. 3.Gastroesophageal reflux disease. 4.Hyperlipidemia mixed. 5.Parkinson disease. 6.Schizophrenia. Discharge Diagnoses: 1.Status post fall. 2.Parkinson disease, stable. 3.History of seizure disorder. 4.Gastroesophageal reflux disease without esophagitis. 5.Mixed hyperlipidemia. 6.History of schizophrenia. 7.Left eye enucleate, redness improving. 8.Uncontrolled hypertension. Hospital Course: Patient is a 78-year-old male from nursing facility with past medical history of de mentia, Parkinson's, hypertension, hyperlipidemia, comes in due to falling out of wheelchair. [facility] patient had poorly controlled blood pressure in the 200s. Imaging studies including head and CT cervical spine were negative for any acute abnormalities. His fall was likely related to his Ana Laura on disease and shuffling gait. Patient overall is a poor historian, has dementia. Family was at the bedside. Patient was on Ativan at the nursing facility, which was held along with gabapentin to curtis id sedated medications. His orthostatic vital signs were checked which were negative. He had some m ild electrolyte abnormalities, which were corrected. His UA was negative. Culture did not show any growth. Overall, patient did well. He worked well with PT, was able to ambulate with a rolling walk er. He was then cleared for discharge and was sent back to nursing facility. Family understands jose t due to his Parkinson disease, he has gait abnormalities and may be at continued risk for fall. He needs to have close supervision and assistance while ambulating and transferring. Medication List: Reviewed. Diet: Heart healthy. Followup: Follow up with primary care physician in 2-3 days. Follow up with primary neurologist in 2-4 weeks. Return to ER for worsening condition. Activity: Fall precautions. Physical Examination: General: Awake, alert, oriented to self, elderly male. CV: S1-S2. Respiratory: Moving air well bilaterally. Abdomen: Abdomen is soft, nontender, nondistended. Positive bowel sounds. Extremities: No clubbing, cyanosis, or edema. Neurologic: Nonfocal. SA/MODL Voice ID: [id number] Report ID: [id number]
== END 2019-01-07 13:47 ==
LOC: ER 12:15 → ERHOLD 15:50 → 2ND 17:14
PROVIDERS: ADMIT Family Medicine; ATTEND Family Medicine
PROC: 0JQJ0ZZ Repair Right Hand Subcutaneous Tissue and Fascia, Open Approach (ICD-10-PCS; principal; 2019-01-05)
DX: S61.216A Laceration without foreign body of right little finger without damage to nail, initial encounter (principal); W05.0XXA Fall from non-moving wheelchair, initial encounter; Y92.129 Unspecified place in nursing home as the place of occurrence of the external cause; G40.909 Epilepsy, unspecified, not intractable, without status epilepticus; K21.9 Gastro-esophageal reflux disease without esophagitis; E78.2 Mixed hyperlipidemia; G20 Parkinson's disease; I10 Essential (primary) hypertension; S05.72XA Avulsion of left eye, initial encounter; Z91.81 History of falling; F20.9 Schizophrenia, unspecified
CPT/HCPCS: 93005; 87088; 85025 ×3; 87086; 80048; 36415 ×3; 83735 ×2; 84100; 85610; 82962 ×8; 80076; 84484; 80053 ×2; 83880; 70450; 72125; 71045; 97116; 97161; 94760 ×5; 99285; 12001; J7799 ×2; J7030 ×2; G0378 ×4; 81003; 81015